=== PATIENT | female | born 1995 | race Hispanic/Latino ===

== ENCOUNTER 2019-01-21 04:13 | Inpatient (IN) | payer MEDICARE, MEDICAID ==
[2019-01-21] MEDS ORDERED: niCARdipine 20MG In NaCl 20 MG/200 ML BAG ONE (04:25)
[2019-01-21] MEDS ORDERED: Piperacillin/Tazobactam 4.5 GM VIAL ONE (05:24)
[2019-01-21] MEDS ORDERED: Bisacodyl 10 MG SUPP PR PRN (05:26)
[2019-01-21] MEDS ORDERED: Ondansetron PF 4 MG/2 ML Vial IVP PRN (05:26)
[2019-01-21] MEDS ORDERED: Morphine 2 MG/ML SYRINGE SLOW IVP PRN (05:26)
[2019-01-21] MEDS ORDERED: Sodium Chloride 0.9% 1,000 ML IV SCH (05:30)
[2019-01-21] MEDS ORDERED: manNITOL 20% 500 ML ONE (05:46)
[2019-01-21] MEDS ORDERED: Thrombin 5000 UNITS/5 ML VIAL ONE (05:49)
[2019-01-21] MEDS ORDERED: Lidocaine 0.5%/Epinephrine 1:200,000 50 ml Vial ONE (05:49)
[2019-01-21] MEDS ORDERED: Sodium Chloride 0.9% 10 ML ONE (05:49)
[2019-01-21] MEDS ORDERED: Midazolam HCl 2 mg/2 ml Vial ONE (05:50)
[2019-01-21] MEDS ORDERED: Fentanyl 100 MCG/2 ML VIAL ONE (05:50)
[2019-01-21 05:51] LABS: Analyzer IN Cardio ER; Base Excess (BEa) 0.3 mEq/L (-2.0 to +3.0); CO2 Tension 27.1 mmHg (35.0-45.0); Carboxyhemoglobin (COHb) 0.2 gm% (0.0-3.0); Hemoglobin (Hb) 11.5 g/dL (12.0-16.0); O2 Tension (PaO2) 224.6 mmHg (80.0-100.0); Potassium - ABG Lab 4.53 mmol/L (3.70-5.30); pH, Arterial 7.53 (7.35-7.45)
[2019-01-21 05:54] LABS: Puncture Site LRA
[2019-01-21 05:55] LABS: ALV-art Gradient 98.025 (0-20)
[2019-01-21] MEDS ORDERED: SODIUM CHLORIDE 0.9% IVPB SCH ×2 (06:45→11:30)
[2019-01-21] MEDS ORDERED: FOSPHENYTOIN SODIUM IVPB SCH ×2 (06:45→11:30)
--- NOTE | 2019-01-21 07:10 | PRG ---
DATE OF SERVICE: 01/21/2019 HISTORY OF PRESENT ILLNESS: Ms. Stewart is a 23-year-old female who presented to an outside ER. She had a noncontrast head CT at that time which revealed diffuse widespread subarachnoid hemorrhage with intraparenchymal and extra-axial components. She was transferred to [facility]. She had been intubated. She underwent repeat imaging, which revealed the aforementioned blood products in the brain with associated midline shift. She had a CT angiogram performed, which revealed no obvious source of vascular anomaly including aneurysm or AV malformation. There was a large degree of blood present, which could easily obscure an underlying aneurysm. She does not open her eyes. She episodically moves the right upper extremity and per report intermittently to command. She did receive a dose of mannitol at [facility] prior to transfer. This is a 23-year-old female with multiple intracranial hemorrhages. The most significant of which is a large subarachnoid intraparenchymal component with associated midline shift and associated subfalcine herniation. Neurologically, she is doing poorly and is at risk for eminent herniation. The neurosurgical plan will be one of a decompressive craniectomy. She will need followup vascular studies to further evaluate for aneurysm or other source for her hemorrhage. Of note, she is in end-stage renal disease, awaiting kidney transplant. The family is aware of the gravity of her condition and her poor prognosis at this time. The risks, benefits, and alternatives to the surgical procedure were discussed with the family and they have provided consent. Job ID: [id number] MTDD
--- NOTE | 2019-01-21 07:31 | CT ---
CT HEAD NONCONTRAST CTA [place] OF [place] WITH CONTRAST CTA NECK WITH CONTRAST 3D VOLUME RENDERING: Date: 01/21/19 CLINICAL HISTORY: Altered mental status. History of ruptured aneurysm with intracranial hemorrhage and midline shift. Prior imaging evaluation not available for comparison purposes. FINDINGS: There is a large mixed density acute parenchymal hemorrhage centered at the right frontal lobe with f luid hemorrhage level and surrounding edema which spans an AP dimension of approximately 5.5 cm. Ther e is diffuse bilateral acute subarachnoid hemorrhage with superimposed subdural hemorrhage along the anterior interhemispheric falx and overlying the right frontoparietal convexity. Subdural hematoma ov erlying the right convexity measures up to 4-5 mm in thickness. There is leftward subfalcine herniati on, measuring 4-5 mm at level of septum pellucidum. There is diffuse subarachnoid hemorrhage infiltra ting the basilar cisterns and extending into the imaged upper cervical spine vertebral canal. Localiz ed extra-axial hemorrhage of the right middle cranial fossa exerts mass effect upon the anterior pole of the right temporal lobe. There is generalized effacement of the cerebral sulci. Mild asymmetric p rominence of the left temporal horn suggests component of early ventricular trapping due to mass effe ct. CTA neck exam reveals a patent aortic arch, where visualized, and patent bilateral subclavian arterie s. The bilateral common carotid arteries and cervical internal carotid arteries are patent. Throughou t the cervical course of each vertebral artery, there is no significant stenosis. There is encasement of the convergence of the vertebral arteries, as well as of the basilar artery by extensive hemorrha ge, which does produce mild luminal irregularity and narrowing, which may be on the basis of vasocons triction. No significant stenosis or occlusion of either MCA or CRISTINA. There is vasoconstriction of the anterior and middle cerebral arteries due to the prominent, encasing intracranial hemorrhage. Adjace nt to the right M1 segment, just cephalad, and posterior, there is a 3 mm nidus of extravascular hype rdensity which is located within a prominent region of surrounding intracranial hemorrhage. This suzie cates nidus of active bleeding. Incidental note of pulmonary nodules of the right upper lung, incompletely evaluated. There is scatte red paranasal sinus mucosal thickening, greatest involving the right maxillary sinus. Endotracheal an d enteric catheters are present, with surrounding secretions. IMPRESSION: 1. Extensive acute intracranial hemorrhage both intra-axial and extra-axial producing mass effect, m idline shift, ventricular effacement, and ventricular trapping. 2. There is a punctate nidus of extravascular hyperdensity adjacent to the right M1 segment, surroun ded by large volume intracranial hemorrhage, which indicates a site of extravascular acute bleeding, giving the imaging appearance. This is markedly limited in evaluation due to the surrounding acute he morrhage and associated vasospasm. Recommend neurosurgical consultation and conventional cerebral ang iogram for further assessment. Notification of report made available at 0525 hours on 01/21/19. CODE CR. POS: NILE
--- NOTE | 2019-01-21 07:37 | CT ---
ABDOMEN AND PELVIS CT WITH CONTRAST: Date: 01/21/19 INDICATION: Leukocytosis, possible infection. FINDINGS: There is mild volume loss at the imaged lung bases. There is diffuse mild abdominal and pelvic ascite s. Scattered loops of bowel wall thickening are present, notably involving colon, although the bowel is incompletely assessed by lack of enteric contrast administration. An indwelling dialysis catheter is present at the left abdomen via left lower quadrant percutaneous approach, and is coiled within th e posterior left pelvis. The kidneys are atrophic, with multiple hypodensities bilaterally. The domin ant of these, located within the left kidney, demonstrates Hounsfield units slightly greater than nithin t of a simple cyst. There is mild wall prominent and hyperdensity of the gallbladder, which is surrou nded by the above described ascites. There is no free air. Abdominal aorta is normal in caliber. No a cute abnormality of the liver, spleen, pancreas, or adrenal glands. The osseous structures are intact . IMPRESSION: 1. Diffuse bowel wall thickening. Correlate for evidence of enterocolitis. This is limited in assess ment by technique of the exam which does not include enteric contrast. 2. Indwelling peritoneal dialysis catheter with mild diffuse ascites. 3. Atrophic, bilateral kidneys with multiple hypodensities, a majority of which are too small to fur ther characterize, although the largest is slightly greater than typical density of a simple cyst. 4. Mild nonspecific wall prominence and hyperdensity of the gallbladder wall. This is age-indetermin ate. When clinically feasible, as indicated, a dedicated gallbladder ultrasound may be obtained for f urther evaluation. POS: NILE
--- NOTE | 2019-01-21 07:53 | HP ---
HISTORY OF PRESENT ILLNESS: Ms. Nikhil Stewart is a 23-year-old woman, who was transferred from [facility] to [facility] Department for an intracerebral hemorrhage and diffuse subarachnoid hemorrhage likely secondary to aneurysmal rupture. For this purpose, Neurosurgery was consulted. Upon arrival to the Emergency Department of [facility], she had GCS score of 14 but began to deteriorate and vomited profusely. This prompted securing of her airway via intubation. She arrived to [place] and sedated. This was turned off but she started to have some midline shift, right to left, approximately 6 mm on the scan from [facility]. Unfortunately, CTA performed in our Emergency Department has angulation in the axial field or an axial cut that makes it difficult to determine the exact degree of midline shift. The ventricles are not enlarged in the scan performed at [facility]; however, this could certainly become given the degree of subarachnoid hemorrhage she has. She also has a large cerebral clot in the frontal lobe on CTA. I am unable to identify any specific aneurysm or aneurysmal structure, which may be because of again angulation of the scan and not blood products, perhaps the aneurysm sac is compressed. The patient has received 25 g mannitol in [facility] and no more here. She is on 125 mL/hour of normal saline. We turned off her sedation upon arrival. 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 ALLERGIES: SHE HAS NO DRUG ALLERGIES. ACCORDING TO FAMILY, SHE TAKES A HANDFUL OF MEDICATIONS. THE FAMILY IS UNCERTAIN OF THE NAMES. PHYSICAL EXAMINATION: NEUROLOGIC: On examination, after we waited some time for sedation to wear off, she briskly follows commands in the right upper extremity. She withdrawal bilateral lower extremities to pain and moves the left upper extremity to pain, although very limited. EYES: Pupils are equally round but limited reactivity to light as they are constricted. She did receive a large dose of fentanyl before arriving here to help with induction for intubation and tolerance of the vent in the field. She is intubated now with greater GCS, M6 V1 E1 giving her a GCS of 8. ASSESSMENT: Intracerebral hemorrhage, altered mental status, and subarachnoid hemorrhage likely secondary to aneurysm yet to be identified. PLAN: Case is discussed with Dr. Rizzo. We will give another 25 g dose of mannitol. We will consult Critical Care secondary to medical management in the ICU. We will also need to consult Nephrology for management of renal disease and dialysis, and we will consent her for emergent right frontal lokesh-craniectomy. This was discussed with family at length in the consultation room. They are in agreement to this except they would like surgery. The family was consented. Job ID: [id number]
[2019-01-21] MEDS ORDERED: Bacitracin Zinc Ointment 30 gm TUBE ONE (08:06)
[2019-01-21] MEDS ORDERED: Propofol 1,000 MG/100 ML VIAL IV ONE (08:54)
[2019-01-21 09:07] LABS: Actual Bicarbonate (HCO3a) 21.7 mEq/L (22-28); Base Excess (BEa) -1.9 mEq/L (-2.0 to +3.0); CO2 Tension 31.9 mmHg (35.0-45.0); Calcium, Ionized 0.92 mmol/L (1.12-1.30); Carboxyhemoglobin (COHb) 0.4 gm% (0.0-3.0); Hemoglobin (Hb) 7.9 g/dL (12.0-16.0); O2 Tension (PaO2) 115.2 mmHg (80.0-100.0); Potassium - ABG Lab 6.36 mmol/L (3.70-5.30); pH, Arterial 7.45 (7.35-7.45)
--- NOTE | 2019-01-21 09:10 | RAD ---
SINGLE VIEW CHEST: Date: 01/21/19 COMPARISON: 11/16/14. HISTORY: Post intubation and OG tube placement. Respiratory failure. FINDINGS: Single view of the chest shows normal sized cardiomediastinal silhouette. There is no evidence of con solidation, mass, or pleural effusion. There is an endotracheal tube with its tip between the clavicl es. A NG tube is seen in the stomach. There is no evidence of consolidation, mass, or pleural effusio n. IMPRESSION: Appropriate position of endotracheal tube and NG tube. POS: CET
[2019-01-21 09:11] LABS: Puncture Site ALINE
[2019-01-21 09:14] LABS: ALV-art Gradient 130.125 (0-20)
[2019-01-21] MEDS ORDERED: Lorazepam 2 MG/ML VIAL SLOW IVP PRN (09:24)
[2019-01-21] MEDS ORDERED: Fentanyl BOLUS 250 ML IVPB PRN (09:24)
[2019-01-21] MEDS ORDERED: DISCONTINUE PREVIOUS NARCOTIC PAIN MEDICATIONS AND BENZODIAZEPINES FS SCH (09:24)
[2019-01-21] MEDS ORDERED: fentaNYL Citrate/PF 2,000 MCG in Sodium Chloride 0.9% 60 ML IV SCH (09:24)
[2019-01-21] MEDS ORDERED: Propofol BOLUS 1,000 MG/100 ML VIAL IV PRN (09:24)
--- NOTE | 2019-01-21 09:34 | RAD ---
RADIOGRAPH CHEST 1 VIEW: DATE: 01/21/2019 TIME: 9:13 AM HISTORY: Central line placement in 23-year-old female COMPARISON: 01/21/2019 4:11 AM FINDINGS: There is a new left subclavian central venous catheter, with distal tip in the central portion of the right atrium. Endotracheal tube and esophagogastric tube remain. New finding of partial silhouetting of the left hemidiaphragm, perhaps subsegmental atelectasis at left lower lobe. The rest of the lungs remain clear. No evidence of pneumothorax. IMPRESSION: Left subclavian central vascular catheter placement without pneumothorax.
--- NOTE | 2019-01-21 09:46 | OP ---
DATE OF PROCEDURE: 01/21/2019 ACUTE CARE CERTIFIED NURSING ASSISTANT: Arthur Donato PA-C INDICATION: Intracerebral hemorrhage with a herniation syndrome. PROCEDURES PERFORMED: Right frontal, temporal, parietal craniectomy for decompression. ANESTHESIA: General. DESCRIPTION OF PROCEDURE: The patient was brought into the operating room and placed under general anesthesia. She was placed on table in a supine position. Her head was turned to the left for exposure on the right side. The right side of her scalp was shaved. A large reverse question ricco incision was planned. After prepping and draping and after infiltrating the incision with lidocaine with epinephrine, the incision was created. Roxane clips were applied along the perimeter. The skin flap was reflected anteriorly. Multiple diamond holes were placed and connected with a router drill bit and the bone flap was elevated. The dura was identified and found to be taut with a blue hue beneath it. The dura was opened in a stellate fashion, where there was immediate egress of subdural blood product. The brain was discolored consistent with diffuse widespread subarachnoid hemorrhage. After opening the dural leaflets and obtaining hemostasis, silastic sheet was carefully secured loosely to the dural leaflets. An epidural drain was then placed and brought out through a separate puncture site. The wound was then closed in anatomic layers and a pressure dressing was applied. There were no known procedural complications. Job ID: [id number]
[2019-01-21] MEDS ORDERED: CEFAZOLIN 2 GM in Sodium Chloride 0.9% 100 ML IVPB SCH ×2 (10:00→14:00)
[2019-01-21] MEDS ORDERED: ISOVUE-370 76%-LOCM 1 ML ONE (10:12)
[2019-01-21 10:27] LABS: #Basophils 0.1 thou/uL (0.0-0.2); #Lymphocytes 1.3 thou/uL (1.20-3.40); #Monocytes 0.9 thou/uL (0.11-0.59); #Neutrophils 9.2 thou/uL (1.40-6.50); %Basophils 0.7 % (0.0-1.0); %Eosinophils 0.2 % (0.0-10.0); %Lymphocytes 11.5 % (21.0-51.0); %Monocytes 7.7 % (0.0-10.0); %Neutrophils 79.8 % (42.0-75.0); Hemoglobin 8.2 g/dL (12.0-16.0); Mean Corpuscular HGB CONC 34.8 g/dL (32.0-36.0); Mean Corpuscular Hemoglobin 30.9 pg (27.0-31.0); Mean Platelet Volume 7.9 fL (7.4-10.4); Platelet Count 248 thou/uL (130-400); RBC Distribution Width 11.4 % (11.5-14.5); Red Blood Cell (RBC) Count 2.65 mill/uL (4.20-5.40); White Blood Cell (WBC) Count 11.5 thou/uL (4.8-10.8)
[2019-01-21] MEDS: Propofol 1,000 MG/100 ML VIAL IV PRN ×2 (10:35→18:22)
[2019-01-21] MEDS: niMODipine 30 MG CAP PO SCH ×4 (10:35→22:06)
[2019-01-21 10:38] LABS: Anion Gap 18 mmol/L (10-20); BUN (Urea Nitrogen) 56 mg/dL (7.0-18.7); Calc. Creatinine Clearance 5 mL/min (70-130); Calcium 7.2 mg/dL (7.8-10.44); Carbon Dioxide 22 mmol/L (22-29); Chloride 97 mmol/L (98-107); Estimated GFR-MDRD 3; Glucose 89 mg/dL (70-105); Potassium 6.5 mmol/L (3.5-5.1); Sodium 130 mmol/L (136-145)
--- NOTE | 2019-01-21 11:09 | CON ---
DATE OF CONSULTATION: REASON FOR CONSULTATION: End-stage renal disease, on maintenance peritoneal dialysis. HISTORY OF PRESENT ILLNESS: This is a 23-year-old female, who presented for subarachnoid hemorrhage and had surgery. The patient is intubated. She does peritoneal dialysis on a daily basis. No further history can be obtained as the patient is intubated. PAST MEDICAL HISTORY: Significant for end-stage renal disease, on maintenance peritoneal dialysis due to William disease, history of PD catheter placement, history of AV fistula surgery, history of anemia, and history of hypertension. SOCIOECONOMIC HISTORY: No alcohol or drug use. FAMILY HISTORY: Negative for ESRD. ALLERGIES: REVIEWED. MEDICATIONS: Medication list reviewed. REVIEW OF SYSTEMS: Unobtainable. PHYSICAL EXAMINATION: GENERAL: The patient is resting. VITAL SIGNS: Afebrile, pulse 75, breathing 16, blood pressure 118/64. GENERAL APPEARANCE AND MENTAL STATUS: Fair. HEAD/NECK: Normocephalic. Atraumatic. EYES: EOMI. No deformity. EARS: Clear. No ulcers. NOSE: Intact. No lesions. MOUTH: Clear. No discharge. THROAT: Clear. No exudate. LUNGS: Clear. No crackles. CARDIAC: S1, S2. No rub. ABDOMEN: Benign. Bowel sounds positive. GENITALIA/RECTUM: Sanchez absent. BACK/EXTREMITIES: Edema 0+. NEUROLOGICAL: The patient is resting. SKIN: LYMPHATICS: LABORATORY DATA: No labs available here. ASSESSMENT AND RECOMMENDATIONS: 1. Stage 6 chronic kidney disease. Plan dialysis, which will be peritoneal dialysis per her home standing orders. 2. Anemia, stable. 3. Medication based on GFR, appropriate. 4. Subarachnoid hemorrhage. Management per primary team. Job ID: [id number]
[2019-01-21] MEDS: niCARdipine 25 MG in Sodium Chloride 0.9% 250 ML 240 ML IVPB SCH ×2 (11:19→16:20)
[2019-01-21] MEDS: Morphine 2 MG/ML SYRINGE SLOW IVP PRN (12:21)
[2019-01-21] MEDS ORDERED: Aminocaproic Acid 5 GM in Sodium Chloride 0.9% 250 ML 250 ML IV SCH (13:00)
[2019-01-21] MEDS ORDERED: CEFAZOLIN 1 GM VIAL SLOW IVP SCH (14:00)
[2019-01-21] MEDS: CEFAZOLIN 2 GM, Admixture Fee 1 EACH in Sodium Chloride 0.9% 100 ML IVPB SCH ×2 (14:05→22:06)
[2019-01-21 16:02] LABS: Actual Bicarbonate (HCO3a) 23.2 mEq/L (22-28); Base Excess (BEa) -0.6 mEq/L (-2.0 to +3.0); CO2 Tension 34.4 mmHg (35.0-45.0); Calcium, Ionized 0.92 mmol/L (1.12-1.30); Carboxyhemoglobin (COHb) 0.6 gm% (0.0-3.0); Hemoglobin (Hb) 8.4 g/dL (12.0-16.0); Potassium - ABG Lab 5.66 mmol/L (3.70-5.30); pH, Arterial 7.45 (7.35-7.45)
[2019-01-21 16:06] LABS: Puncture Site LINE
[2019-01-21] MEDS ORDERED: PHENYLEPHRINE-NS 100 MCG/ML 10 ML SYRINGE ONE (16:25)
[2019-01-21] MEDS ORDERED: PROPOFOL 200 MG/20 ML VIAL ONE (16:25)
[2019-01-21] MEDS ORDERED: Labetalol HCl 100 MG/20 ML VIAL ONE (16:25)
[2019-01-21] MEDS ORDERED: Rocuronium Bromide 10 MG/ML (10ML VIAL) ONE (16:25)
[2019-01-21] MEDS: Sevelamer Carbonate 800 MG TAB PO SCH (17:10)
[2019-01-21 18:40] LABS: Anion Gap 17 mmol/L (10-20); BUN (Urea Nitrogen) 57 mg/dL (7.0-18.7); Calc. Creatinine Clearance 5 mL/min (70-130); Calcium 7.2 mg/dL (7.8-10.44); Carbon Dioxide 22 mmol/L (22-29); Chloride 98 mmol/L (98-107); Estimated GFR-MDRD 3; Glucose 94 mg/dL (70-105); Potassium 5.5 mmol/L (3.5-5.1); Sodium 131 mmol/L (136-145)
[2019-01-21] MEDS ORDERED: Fosphenytoin Sodium 100 MG in Sodium Chloride 0.9% 100 ML IVPB SCH (21:00)
[2019-01-22] MEDS: niCARdipine 25 MG in Sodium Chloride 0.9% 250 ML 240 ML IVPB SCH ×4 (01:42→12:25)
[2019-01-22] MEDS: niMODipine 30 MG CAP PO SCH ×6 (01:44→21:40)
--- NOTE | 2019-01-22 02:50 | CON ---
DATE OF CONSULTATION: HISTORY OF PRESENT ILLNESS: Ms. Nikhil Stewart is a very unfortunate 23-year- old female with end-stage renal disease. She was transferred here from [facility]. Apparently, she was awake in the emergency room and deteriorated rapidly. She was intubated and transferred here. She had a midline shift. She underwent a craniectomy this morning. She was transferred back to the critical care unit. PAST MEDICAL HISTORY: Remarkable for; 1. Renal failure from [facility]. 2. Status post placement of a peritoneal dialysis catheter. Per my discussion with Dr. Espino, she is extremely compliant, she has been a great patient. Reviewing all records, she has not been somebody that has been in and out of the hospital frequently. Reviewing Dr. 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 She also had a history of hypertension in the past and history of congestive heart failure. In 2014, an echocardiogram showed her to have a normal systolic function and normal diastolic function as well. Her valvular structure appeared to be normal. She did have a pericardial effusion back then. FAMILY HISTORY: Negative for lung disease in early age. REVIEW OF SYSTEMS: Not obtainable. PHYSICAL EXAMINATION: VITAL SIGNS: She is bandaged. She was examined right after coming back from the operating room. Heart rates in the 80s, blood pressure stable. Latest blood pressure is 112/58, respiratory rates in the teens, oximetry is 100%. She had bandaged head. She was still sedated from her surgery. LUNGS: Clear. HEART: Regular rhythm. S1 and S2 normal. ABDOMEN: Soft and nontender without guarding. EXTREMITIES: Without asymmetry or edema. IMAGING DATA: Chest radiograph shows proper placement of the endotracheal tube and central line. No infiltrates are seen. IMPRESSION: 1. Severe brain hemorrhage leading to a craniectomy. 2. End-stage renal disease, on peritoneal dialysis. 3. History of polyarteritis nodosa. We will be happy to follow the other physicians caring for. Obviously at this time, she is not weanable. Her postop blood gas showed pH 7.45, CO2 34, and PO2 164. I will be happy to follow the other physicians caring for. I met with family and talked to them at the bedside. Job ID: [id number] [facility] [place]
[2019-01-22] MEDS: Propofol 1,000 MG/100 ML VIAL IV PRN ×2 (03:49→18:22)
[2019-01-22 04:22] LABS: #Basophils 0.1 thou/uL (0.0-0.2); #Lymphocytes 1.2 thou/uL (1.20-3.40); #Monocytes 1.2 thou/uL (0.11-0.59); #Neutrophils 12.5 thou/uL (1.40-6.50); %Basophils 0.9 % (0.0-1.0); %Eosinophils 0.2 % (0.0-10.0); %Lymphocytes 7.7 % (21.0-51.0); %Monocytes 8.1 % (0.0-10.0); %Neutrophils 83.1 % (42.0-75.0); Hemoglobin 8.8 g/dL (12.0-16.0); Mean Corpuscular HGB CONC 33.6 g/dL (32.0-36.0); Mean Corpuscular Hemoglobin 31.3 pg (27.0-31.0); Mean Platelet Volume 7.8 fL (7.4-10.4); Platelet Count 288 thou/uL (130-400); RBC Distribution Width 11.8 % (11.5-14.5); Red Blood Cell (RBC) Count 2.81 mill/uL (4.20-5.40)
[2019-01-22 04:55] LABS: Anion Gap 20 mmol/L (10-20); BUN (Urea Nitrogen) 46 mg/dL (7.0-18.7); Calc. Creatinine Clearance 5 mL/min (70-130); Calcium 8.3 mg/dL (7.8-10.44); Carbon Dioxide 21 mmol/L (22-29); Chloride 98 mmol/L (98-107); Estimated GFR-MDRD 4; Glucose 222 mg/dL (70-105); Potassium 4.1 mmol/L (3.5-5.1); Sodium 135 mmol/L (136-145)
[2019-01-22] MEDS: CEFAZOLIN 2 GM, Admixture Fee 1 EACH in Sodium Chloride 0.9% 100 ML IVPB SCH ×3 (05:30→21:40)
--- NOTE | 2019-01-22 07:48 | PRG ---
DATE OF SERVICE: 01/22/2019 Ms. Nikhil Stewart is 1 day status post hemicraniectomy for a large intracerebral hemorrhage consisting of subarachnoid hemorrhage, intracerebral hemorrhage, and subdural hematoma. Her initial screening study performed yesterday revealed no evidence for underlying vascular malformation or aneurysm. I had ordered a repeat CTA this morning, which never got done. My plan is to take her to the research laboratory technician to perform diagnostic angiography and treating the vascular malformation, which may be present. She will still need repeat CT scan at some point today. I have discussed this with her family and they have provided consent for the procedure. Overnight, she has been stable. She is currently sedated. Per report, she follows commands on the right side. She does not open eyes nor does she exhibit any movement on the left side. Job ID: [id number]
[2019-01-22] MEDS ORDERED: Heparin 10,000 UNITS/1 ML VIAL ONE (08:00)
[2019-01-22] MEDS: Sevelamer Carbonate 800 MG TAB PO SCH ×3 (09:00→17:36)
[2019-01-22] MEDS ORDERED: Prevnar 13-Val Conj/PF 0.5 ML SYRINGE IM ONE (09:00)
[2019-01-22] MEDS: Calcitriol 0.25 MCG CAP PO SCH (09:00)
[2019-01-22] MEDS ORDERED: Rocuronium Bromide 10 MG/ML (10ML VIAL) ONE (09:37)
[2019-01-22] MEDS ORDERED: Iopamidol 370 76% 100 ML VIAL ONE (10:59)
--- NOTE | 2019-01-22 12:16 | PRG ---
DATE OF SERVICE: 01/22/2019 SUBJECTIVE: A 23-year-old female being seen for end-stage renal disease. The patient tolerated PD well. OBJECTIVE: GENERAL: The patient is resting. VITAL SIGNS: Afebrile. Pulse 106, breathing 16, blood pressure 115/52. GENERAL APPEARANCE AND MENTAL STATUS: Fair. HEAD/NECK: Normocephalic. Atraumatic. EYES: EOMI. No deformity. EARS: Clear. No ulcers. NOSE: Intact. No lesions. MOUTH: Clear. No discharge. THROAT: Clear. No exudate. LUNGS: Clear. No crackles. CARDIAC: S1, S2. No rub. ABDOMEN: Benign. Bowel sounds positive. GENITALIA/RECTUM: Sanchez absent. BACK/EXTREMITIES: Edema 0+. NEUROLOGICAL: The patient is sleeping. SKIN: LYMPHATICS: LABORATORY DATA: Labs showed hemoglobin 8.8, potassium 4.1. ASSESSMENT AND PLAN: 1. Stage 6 chronic kidney disease, stable. 2. Hypertension, stable. 3. Anemia, stable. 4. Medication based on GFR appropriate. Job ID: [id number]
[2019-01-22] MEDS: Morphine 2 MG/ML SYRINGE SLOW IVP PRN (17:31)
--- NOTE | 2019-01-22 18:51 | CCL ---
DATE OF SERVICE: 01/22/19 SURGEON: Napoleon Rizzo M.D. REHAB RN: None. INDICATION: Intracerebral hemorrhage. PROCEDURE: Diagnostic cerebral angiography. ANESTHESIA: General and local. TECHNIQUE: The patient was brought into the angiogram suite and placed on the table in the supine position. Both groins were prepped and draped in the usual sterile fashion. She was already intubated and therefore placed under anesthesia via anesthesia help. A 5 Filipino micropuncture set was used to gain access to the right common femoral artery. Using the Seldinger technique, the needle was removed and a 5 Frenc h sheath was placed. A 5 Filipino diagnostic catheter was passed over a Advanced LEDssen guidewire and advanced into the aortic arch where the right common carotid artery was selective catheterized. AP and lateral angiogram was performed. The catheter was then placed in the left internal carotid artery where an AP and lateral angiogram was performed. Finally the catheter was placed in the left vertebral artery where an AP and lateral angiogram was performed. All catheters were then removed. The sheath was saji rosalio and hemostasis was maintained with manual compression. The procedure came to an end without known complication. FINDINGS: Cerebral angiography was performed from the right common carotid artery reveals no evidence for early filling vein, arterial venous malformation or obvious aneurysm. Cerebral angiography performed from the left internal carotid artery reveals normal filling middle ce rebral artery territory. The anterior cerebral artery territory is filled from the contralateral side . There is no evidence AVM or aneurysm. Cerebral angiography performed from the left vertebral artery reveals no evidence for aneurysm or ear ly filling vein or vascular malformation. IMPRESSION: Patient underwent successful angiography. Angiography reveals no evidence at this time for aneurysm, arteriovenous malformation, or other obvious cause for the patient's hemorrhage. There is no indicati on at this time for early signs of vasospasm.
[2019-01-23] MEDS: niMODipine 30 MG CAP PO SCH ×6 (01:03→21:12)
[2019-01-23] MEDS: niCARdipine 25 MG in Sodium Chloride 0.9% 250 ML 240 ML IVPB SCH ×2 (01:40→07:10)
[2019-01-23] MEDS: Morphine 2 MG/ML SYRINGE SLOW IVP PRN (01:41)
[2019-01-23] MEDS: CEFAZOLIN 2 GM, Admixture Fee 1 EACH in Sodium Chloride 0.9% 100 ML IVPB SCH ×3 (05:12→21:17)
[2019-01-23] MEDS: Propofol 1,000 MG/100 ML VIAL IV PRN ×2 (06:03→18:33)
[2019-01-23 07:56] LABS: Actual Bicarbonate (HCO3a) 21.2 mEq/L (22-28); Base Excess (BEa) -3.3 mEq/L (-2.0 to +3.0); CO2 Tension 35.2 mmHg (35.0-45.0); Calcium, Ionized 1.01 mmol/L (1.12-1.30); Carboxyhemoglobin (COHb) 1.1 gm% (0.0-3.0); Hemoglobin (Hb) 8.2 g/dL (12.0-16.0); O2 Tension (PaO2) 166.1 mmHg (80.0-100.0); Potassium - ABG Lab 3.52 mmol/L (3.70-5.30)
[2019-01-23 07:59] LABS: Puncture Site ALINE
[2019-01-23] MEDS: Calcitriol 0.25 MCG CAP PO SCH (08:23)
[2019-01-23] MEDS: Sevelamer Carbonate 800 MG TAB PO SCH ×3 (08:23→16:26)
--- NOTE | 2019-01-23 09:42 | PRG ---
DATE OF SERVICE: 01/23/2019 SUBJECTIVE: A 23-year-old female, being seen for end-stage renal disease. The patient denies nausea, vomiting, or chest pain. OBJECTIVE: GENERAL: The patient is awake and alert. VITAL SIGNS: Afebrile, pulse 74, breathing 16, blood pressure 119/53. GENERAL APPEARANCE AND MENTAL STATUS: Fair. HEAD/NECK: Normocephalic. Atraumatic. EYES: EOMI. No deformity. EARS: Clear. No ulcers. NOSE: Intact. No lesions. MOUTH: Clear. No discharge. THROAT: Clear. No exudate. LUNGS: Clear. No crackles. CARDIAC: S1, S2. No rub. ABDOMEN: Benign. Bowel sounds positive. GENITALIA/RECTUM: Sanchez absent. BACK/EXTREMITIES: Edema 0+. NEUROLOGICAL: The patient is resting. SKIN: LYMPHATICS: LABORATORY DATA: Reviewed. ASSESSMENT AND PLAN: 1. Stage 6 chronic kidney disease. Continue peritoneal dialysis. 2. Hypertension, stable. 3. Anemia, stable. 4. Medication based on GFR, appropriate. Job ID: [id number]
[2019-01-23] MEDS: niCARdipine 50 MG in Sodium Chloride 0.9% 250 ML 230 ML IVPB SCH ×2 (10:27→16:46)
--- NOTE | 2019-01-23 11:51 | PRG ---
DATE OF SERVICE: 01/23/2019 SUBJECTIVE: Ms. Nikhil Stewart is postoperative day #2 following right-sided hemicraniectomy. She opens her eyes to voice this morning and follows commands even on the left side and briskly on the right side. She remains intubated. She has significant swelling of her tongue. It is unclear to us whether at this point, it represents angioedema from some sort of medication reaction or related to volume shifts due to her renal disease. She has an art line in her left arm and we will remove this as there is swelling and there has been good function of the cuff and we will use that at this time. We will also get bilateral lower extremity ultrasound as well. We will stop her Amicar. Job ID: [id number]
--- NOTE | 2019-01-23 12:05 | ULT ---
US Venous Doppler Bilat History: Lower extremity edema Comparison: None. Findings: Real-time grayscale spectral and color evaluation of the bilateral lower extremity venous s ystem was performed. The bilateral common femoral, femoral, proximal portions greater saphenous and deep femoral veins as well as the popliteal posterior tibial veins were interrogated. No augmentation was performed as the patient was combative. Normal flow and compression. Impression: No deep venous thrombosis.
--- NOTE | 2019-01-23 12:14 | ULT ---
ULTRASOUND DOPPLER DUPLEX VENOUS LEFT UPPER EXTREMITY: Date: 01/23/19 HISTORY: 23-year-old female with left upper extremity edema. TECHNIQUE: Wilburn scale, color flow, and spectral analysis of major veins of left upper extremity. Compression and release applied to all veins except the subclavian. FINDINGS: There is occlusive thrombosis of the distal portion of the left basilic vein at the wrist. There is n o thrombus in the basilic vein at the proximal forearm, elbow, or arm. There is no evidence of thromb osis of the internal jugular, subclavian, axillary, brachial, cephalic, or radial veins. IMPRESSION: Occlusive thrombosis of left basilic vein at the wrist only. POS: CET
--- NOTE | 2019-01-23 17:03 | PRG ---
DATE OF SERVICE: 01/23/2019 SUBJECTIVE: Ms. Nikhil Stewart remains mechanically ventilated. OBJECTIVE: VITAL SIGNS: Heart rate is in the 90s, blood pressure is 114/55, respiratory rate is 18, oximetry is 100%. NECK: Without lymphadenopathy. LUNGS: Clear. HEART: Regular rhythm. S1 and S2 are normal. No new murmurs heard. ABDOMEN: Soft and nontender. EXTREMITIES: Without edema. LABORATORY DATA: White count 15, hemoglobin 8.8, platelets 288. Sodium 135, potassium 4.1, chloride 98, bicarb 21, BUN 46, and creatinine 13.10. IMPRESSION: 1. End-stage renal disease. 2. Status post parenchymal brain hemorrhage. 3. Hypertension. PLAN: We will continue mechanical ventilation, seizure prophylaxis. Attempt to maintain blood pressure control. In my opinion, she is not accounted for extubation. Critical care time is 35 minutes. Job ID: [id number] MTDD
--- NOTE | 2019-01-23 17:24 | PRG ---
DATE OF SERVICE: 01/23/2019 SUBJECTIVE: Ryder Stewart remains mechanically ventilated. OBJECTIVE: VITAL SIGNS: Blood pressure 114/55, heart rate in the 90s, respiratory rate in the teens, oximetry is 100%. LUNGS: Clear. HEART: Regular rhythm. S1, S2 are normal. ABDOMEN: Soft, nontender. EXTREMITIES: Without edema or asymmetry. IMAGING DATA: Venogram was done today showing no clots in either lower extremity. There is no new lab. IMPRESSION: 1. Status post parenchymal brain hemorrhage. 2. End-stage renal disease. PLAN: Repeat lab in the morning. Chest x-ray. Continue with mechanical ventilation. Serial exams. Critical care time is 35 minutes. Job ID: [id number] MTDD
[2019-01-23] MEDS: Insulin Regular 300 UNITS/3 ML VIAL SC PRN (23:36)
[2019-01-24] MEDS: niMODipine 30 MG CAP PO SCH ×6 (02:18→21:07)
[2019-01-24] MEDS: niCARdipine 50 MG in Sodium Chloride 0.9% 250 ML 230 ML IVPB SCH ×4 (03:42→19:46)
[2019-01-24] MEDS: Morphine 2 MG/ML SYRINGE SLOW IVP PRN ×3 (03:45→21:07)
[2019-01-24 04:49] LABS: Anion Gap 20 mmol/L (10-20); BUN (Urea Nitrogen) 45 mg/dL (7.0-18.7); Calc. Creatinine Clearance 6 mL/min (70-130); Carbon Dioxide 22 mmol/L (22-29); Chloride 98 mmol/L (98-107); Estimated GFR-MDRD 4; Glucose 140 mg/dL (70-105); Potassium 3.3 mmol/L (3.5-5.1); Sodium 137 mmol/L (136-145)
[2019-01-24 04:57] LABS: Band 1 % (5-11); Eosinophils 1 % (0-10); Hemoglobin 7.1 g/dL (12.0-16.0); Lymphocytes 10 % (21-51); MDiff Complete? YES; Mean Corpuscular HGB CONC 34.6 g/dL (32.0-36.0); Mean Corpuscular Volume 92.4 fL (78.0-98.0); Mean Platelet Volume 8.1 fL (7.4-10.4); Monocytes 9 % (0-10); Neutrophil 79 % (42-75); Platelet Count 263 thou/uL (130-400); Platelet Morphology Comment Appears Adequate; RBC Distribution Width 11.7 % (11.5-14.5); Red Blood Cell (RBC) Count 2.21 mill/uL (4.20-5.40); White Blood Cell (WBC) Count 12.7 thou/uL (4.8-10.8)
[2019-01-24] MEDS: CEFAZOLIN 2 GM, Admixture Fee 1 EACH in Sodium Chloride 0.9% 100 ML IVPB SCH ×3 (05:44→21:08)
[2019-01-24] MEDS ORDERED: Propofol 1,000 MG/100 ML VIAL IV ONE (07:29)
[2019-01-24] MEDS: Propofol 1,000 MG/100 ML VIAL IV PRN ×2 (07:37→19:47)
[2019-01-24 07:45] LABS: Actual Bicarbonate (HCO3a) 22.7 mEq/L (22-28); Base Excess (BEa) -0.9 mEq/L (-2.0 to +3.0); CO2 Tension 33.1 mmHg (35.0-45.0); Calcium, Ionized 1.02 mmol/L (1.12-1.30); Carboxyhemoglobin (COHb) 0.9 gm% (0.0-3.0); Hemoglobin (Hb) 7.3 g/dL (12.0-16.0); O2 Tension (PaO2) 105.5 mmHg (80.0-100.0); Potassium - ABG Lab 3.37 mmol/L (3.70-5.30); pH, Arterial 7.46 (7.35-7.45)
[2019-01-24 07:48] LABS: ALV-art Gradient 67.025 (0-20); Puncture Site LF
[2019-01-24] MEDS: Sevelamer Carbonate 800 MG TAB PO SCH ×3 (08:42→17:05)
[2019-01-24] MEDS: Pantoprazole 40 MG VIAL IVP SCH (08:42)
[2019-01-24] MEDS: Calcitriol 0.25 MCG CAP PO SCH (08:43)
--- NOTE | 2019-01-24 09:53 | RAD ---
CHEST 1 VIEW: Date: 02/24/19 COMPARISON: 01/21/19. HISTORY: Evaluate central line placement. FINDINGS: Redemonstration of endotracheal and nasogastric tube. Left-sided subclavian central venous catheter a ppears to terminate in the right atrium. Cardiac silhouette is enlarged. Pulmonary vessels are slight ly prominent. Patchy interstitial opacities, without consolidation or mass. No pleural effusion or pn eumothorax. IMPRESSION: Lines and tubes as above. POS: [facility]
--- NOTE | 2019-01-24 10:26 | PRG ---
DATE OF SERVICE: 01/24/2019 SUBJECTIVE: A 23-year-old female, being seen for end-stage renal disease. The patient is intubated. OBJECTIVE: GENERAL: On examination, the patient is resting. VITAL SIGNS: Afebrile. Pulse 77, breathing 16, blood pressure 116/55. GENERAL APPEARANCE AND MENTAL STATUS: Fair. HEAD/NECK: Normocephalic. Atraumatic. EYES: EOMI. No deformity. EARS: Clear. No ulcers. NOSE: Intact. No lesions. MOUTH: Clear. No discharge. THROAT: Clear. No exudate. LUNGS: Clear. No crackles. CARDIAC: S1, S2. No rub. ABDOMEN: Benign. Bowel sounds positive. GENITALIA/RECTUM: Sanchez absent. BACK/EXTREMITIES: Edema 0+. NEUROLOGICAL: The patient is resting. SKIN: LYMPHATICS: LABORATORY DATA: Labs show hemoglobin 7.1, creatinine 11.2. ASSESSMENT AND PLAN: 1. Stage 6 chronic kidney disease. Continue PD. 2. Anemia. We would recommend 1 unit of packed red blood cell transfusion. 3. Hypertension, stable. 4. Medication based on GFR, appropriate. Job ID: [id number]
[2019-01-24] MEDS: Scopolamine 1.5 mg/72 hour Patch TD SCH (12:28)
--- NOTE | 2019-01-24 12:58 | PRG ---
DATE OF SERVICE: 01/24/2019 SUBJECTIVE: Ms. Nikhil Stewart she is sleeping currently, but does follow commands. The tongue edema appears to be improved left basilic vein venous thrombosis was found on ultrasound yesterday, bilateral lower extremity ultrasound was negative. We will continue to follow closely along. I should note her flat remains full, but not unduly tense. Her wound is dry. Job ID: [id number]
--- NOTE | 2019-01-24 18:11 | PRG ---
DATE OF SERVICE: 01/24/2019 SUBJECTIVE: Ms. Nikhil Stewart remains stable. OBJECTIVE: VITAL SIGNS: Heart rate is 114, blood pressure 122/57, respiratory rate in the teens, oximetry is 100%. LUNGS: Remarkable for very mild rhonchi. HEART: Regular rhythm. ABDOMEN: Soft. EXTREMITIES: Without asymmetry. LABORATORY DATA: White count 12.7, hemoglobin 7.1, platelets 263. She is to receive blood today. Sodium 137, potassium 3.3, chloride 98, bicarb 22, BUN 45 , and creatinine 11.2. IMPRESSION: 1. End-stage renal disease. 2. Parenchymal brain hemorrhage. 3. Respiratory failure, not a candidate for weaning yet. 4. Anemia with likely mixture of chronic disease and blood loss, to be transfused. 5. History of hypertension. 6. Retained secretions. We will add nebulizer treatments. Continue to follow. Her tongue edema is improving. Be quite some time before she is weanable. I met with the family and updated them in [place] that she is stable. Critical care time is 35 minutes. Job ID: [id number] MTDD
[2019-01-25] MEDS: niMODipine 30 MG CAP PO SCH ×6 (00:52→22:06)
[2019-01-25] MEDS: niCARdipine 50 MG in Sodium Chloride 0.9% 250 ML 230 ML IVPB SCH ×5 (02:00→22:09)
[2019-01-25] MEDS: CEFAZOLIN 2 GM, Admixture Fee 1 EACH in Sodium Chloride 0.9% 100 ML IVPB SCH ×3 (05:03→21:44)
[2019-01-25] MEDS: Propofol 1,000 MG/100 ML VIAL IV PRN ×3 (05:03→20:16)
[2019-01-25 05:07] LABS: Anion Gap 19 mmol/L (10-20); BUN (Urea Nitrogen) 47 mg/dL (7.0-18.7); Calc. Creatinine Clearance 7 mL/min (70-130); Calcium 8.5 mg/dL (7.8-10.44); Carbon Dioxide 21 mmol/L (22-29); Chloride 97 mmol/L (98-107); Estimated GFR-MDRD 5; Glucose 141 mg/dL (70-105); Potassium 3.3 mmol/L (3.5-5.1); Sodium 134 mmol/L (136-145)
[2019-01-25] MEDS: Insulin Regular 300 UNITS/3 ML VIAL SC PRN ×2 (05:32)
[2019-01-25] MEDS: Morphine 2 MG/ML SYRINGE SLOW IVP PRN ×2 (05:32→09:25)
[2019-01-25 05:45] LABS: Anisocytosis SLIGHT = 6-15 cells (100X) (0-5/hpf); Band 1 % (5-11); Eosinophils 3 % (0-10); Hemoglobin 8.5 g/dL (12.0-16.0); Lymphocytes 7 % (21-51); MDiff Complete? YES; Mean Corpuscular HGB CONC 33.3 g/dL (32.0-36.0); Mean Corpuscular Hemoglobin 29.2 pg (27.0-31.0); Mean Corpuscular Volume 87.5 fL (78.0-98.0); Mean Platelet Volume 8.3 fL (7.4-10.4); Monocytes 7 % (0-10); Neutrophil 82 % (42-75); Platelet Count 254 thou/uL (130-400); Platelet Morphology Comment Appears Adequate; RBC Distribution Width 15.8 % (11.5-14.5); Red Blood Cell (RBC) Count 2.92 mill/uL (4.20-5.40); White Blood Cell (WBC) Count 14.9 thou/uL (4.8-10.8)
[2019-01-25 07:30] LABS: Actual Bicarbonate (HCO3a) 21.6 mEq/L (22-28); Base Excess (BEa) -1.8 mEq/L (-2.0 to +3.0); Calcium, Ionized 1.09 mmol/L (1.12-1.30); Carboxyhemoglobin (COHb) 0.9 gm% (0.0-3.0); Hemoglobin (Hb) 8.7 g/dL (12.0-16.0); O2 Tension (PaO2) 84.5 mmHg (80.0-100.0); Potassium - ABG Lab 3.32 mmol/L (3.70-5.30); pH, Arterial 7.46 (7.35-7.45)
[2019-01-25 07:31] LABS: Puncture Site LF
--- NOTE | 2019-01-25 08:09 | RAD ---
EXAM: Portable chest PROVIDED CLINICAL HISTORY: Respiratory insufficiency COMPARISON: 01/24/2019 FINDINGS: Significant interval change with respect to the prior examination is not apparent. IMPRESSION: As above.
--- NOTE | 2019-01-25 08:50 | CT ---
CT HEAD WITHOUT CONTRAST: HISTORY: Status post right decompressive hemicraniectomy. COMPARISON: 01/21/2019 FINDINGS: Hemorrhage: Redemonstration of extensive subarachnoid and intraventricular blood. There is also pro bable intraparenchymal blood in the right frontal lobe. There is sulcal effacement along the right frontal and temporal lobes. There has been interval placement of a decompressive right-sided craniec nico. There are expected postoperative changes in the soft tissues. There is soft tissue swelling and subcutaneous air. A drainage catheter is identified. Brain parenchyma: There is 5 mm of [id number] anterior subfalcine herniation. Ventricular system: Mass effect upon the right lateral ventricle. Stable intraventricular blood. Calvarium: Intact. Sinuses and mastoid air cells: Right sphenoid sinus disease. IMPRESSION: 1. Postoperative changes compatible with a right hemicraniectomy. 2. Extensive intracranial hemorrhage, as described above. There is sulcal effacement along the righ t frontal and temporal regions. 3. Anterior [id number]-[id number] subfalcine herniation. Transcribed Date/Time: 01/25/2019 1:01 PM
[2019-01-25] MEDS: Sevelamer Carbonate 800 MG TAB PO SCH ×3 (09:24→17:48)
[2019-01-25] MEDS: Calcitriol 0.25 MCG CAP PO SCH (09:25)
[2019-01-25] MEDS ORDERED: Labetalol HCl 100 MG/20 ML VIAL ONE (11:06)
[2019-01-25] MEDS: Pantoprazole 40 MG VIAL IVP SCH (11:09)
[2019-01-25] MEDS ORDERED: Labetalol HCl 100 MG/20 ML VIAL SLOW IVP SCH (11:15)
--- NOTE | 2019-01-25 11:28 | PRG ---
DATE OF SERVICE: 01/25/2019 SUBJECTIVE: This is a 23-year-old female being seen for peritoneal dialysis. The patient tolerated PD well. OBJECTIVE: CONSTITUTIONAL: On examination, the patient is resting and intubated. VITAL SIGNS: Afebrile, pulse 110, breathing is 16, and blood pressure 149/63. GENERAL APPEARANCE AND MENTAL STATUS: Fair. HEAD/NECK: Normocephalic. Atraumatic. EYES: EOMI. No deformity. EARS: Clear. No ulcers. NOSE: Intact. No lesions. MOUTH: Clear. No discharge. THROAT: Clear. No exudate. LUNGS: Clear. No crackles. CARDIAC: S1, S2. No rub. ABDOMEN: Benign. Bowel sounds positive. GENITALIA/RECTUM: Sanchez absent. BACK/EXTREMITIES: Edema 0+. NEUROLOGICAL: The patient is resting. SKIN: LYMPHATICS: LABORATORY DATA: Labs show hemoglobin 8.5. Creatinine is 10.4. ASSESSMENT AND PLAN: 1. Stage 6 chronic kidney disease. Continue peritoneal dialysis. We will try to remove fluid. 2. Hypertension. We will start labetalol. 3. Anemia, stable. 4. Medications based on glomerular filtration rate are appropriate. Job ID: [id number]
--- NOTE | 2019-01-25 15:05 | PRG ---
DATE OF SERVICE: 01/25/2019 Ms. Nikhil Stewart is [address] this morning demonstrates herniation of the right frontal lobe out of the craniectomy defect as expected with improvement in her right ventricular effacement and improvement in midline shift. Her drain output has been low overnight and we would consider removal today. She continues to have tongue edema and continues to be stable neurologically, following commands quickly on the right side than she does the left. I should note that she did undergo dialysis and I have spoken with Dr. Hopkins this morning as he was able to remove half a liter. We did give her a unit of blood yesterday and her Dilantin level was low yesterday, as such we gave her 500 mg of IV fosphenytoin and continued her nightly dose of 300 mg at night and her level is therapeutic today. Job ID: [id number]
[2019-01-25] MEDS: Labetalol HCl 100 MG/20 ML VIAL SLOW IVP PRN ×2 (15:47→22:07)
--- NOTE | 2019-01-25 18:44 | PRG ---
DATE OF SERVICE: 01/25/2019 SUBJECTIVE: Remains mechanically ventilated. OBJECTIVE: VITAL SIGNS: Heart rate 104, blood pressure 135/55, respiratory rate is per mechanical ventilation, oximetry is 98%. LUNGS: Clear. HEART: Regular rhythm. ABDOMEN: Soft. EXTREMITIES: Without edema. LABORATORY DATA: White count is 14.9, hemoglobin 8.5, platelets 254. Sodium 134, potassium 3.3, chloride 97, bicarb 21, BUN 47, creatinine 10, pH 7.46, CO2 of 31 , pO2 of 84. IMPRESSION: Respiratory failure, status post parenchymal brain hemorrhage, not a candidate for weaning. We will continue to follow the other physicians caring for. Critical care time is 35 minutes. Job ID: [id number] MTDD
[2019-01-26] MEDS: niMODipine 30 MG CAP PO SCH ×6 (01:01→21:15)
[2019-01-26] MEDS: Propofol 1,000 MG/100 ML VIAL IV PRN ×4 (02:15→23:56)
[2019-01-26] MEDS: Labetalol HCl 100 MG/20 ML VIAL SLOW IVP PRN ×4 (04:06→23:17)
[2019-01-26] MEDS: niCARdipine 50 MG in Sodium Chloride 0.9% 250 ML 230 ML IVPB SCH ×3 (04:16→20:27)
[2019-01-26] MEDS: CEFAZOLIN 2 GM, Admixture Fee 1 EACH in Sodium Chloride 0.9% 100 ML IVPB SCH ×3 (05:39→21:49)
[2019-01-26 05:53] LABS: Band 3 % (5-11); Eosinophils 2 % (0-10); Hemoglobin 8.5 g/dL (12.0-16.0); Lymphocytes 10 % (21-51); MDiff Complete? YES; Mean Corpuscular HGB CONC 34.4 g/dL (32.0-36.0); Mean Corpuscular Hemoglobin 30.2 pg (27.0-31.0); Mean Corpuscular Volume 87.8 fL (78.0-98.0); Mean Platelet Volume 8.3 fL (7.4-10.4); Monocytes 10 % (0-10); Neutrophil 75 % (42-75); Platelet Count 233 thou/uL (130-400); RBC Distribution Width 15.6 % (11.5-14.5); Red Blood Cell (RBC) Count 2.83 mill/uL (4.20-5.40); White Blood Cell (WBC) Count 11.1 thou/uL (4.8-10.8)
[2019-01-26 05:55] LABS: Anion Gap 20 mmol/L (10-20); BUN (Urea Nitrogen) 54 mg/dL (7.0-18.7); Calc. Creatinine Clearance 8 mL/min (70-130); Calcium 8.6 mg/dL (7.8-10.44); Carbon Dioxide 20 mmol/L (22-29); Chloride 96 mmol/L (98-107); Estimated GFR-MDRD 5; Glucose 148 mg/dL (70-105); Potassium 3.2 mmol/L (3.5-5.1); Sodium 133 mmol/L (136-145)
[2019-01-26 07:22] LABS: Actual Bicarbonate (HCO3a) 19.8 mEq/L (22-28); Base Excess (BEa) -3.5 mEq/L (-2.0 to +3.0); CO2 Tension 28.7 mmHg (35.0-45.0); Calcium, Ionized 1.09 mmol/L (1.12-1.30); Carboxyhemoglobin (COHb) 1.4 gm% (0.0-3.0); Hemoglobin (Hb) 8.2 g/dL (12.0-16.0); O2 Tension (PaO2) 68.1 mmHg (80.0-100.0); Potassium - ABG Lab 3.31 mmol/L (3.70-5.30); pH, Arterial 7.46 (7.35-7.45)
[2019-01-26 07:35] LABS: ALV-art Gradient 109.925 (0-20); Puncture Site RA
--- NOTE | 2019-01-26 08:04 | ULT ---
Venous duplex sonogram left upper extremity HISTORY: Left arm pain and edema. FINDINGS: Good color and spectral Doppler flow within the left internal jugular and subclavian veins, the left axillary, brachial, and cephalic veins. Upper arm basilic vein is patent. In the lower arm basilic vein, there are internal echoes with incom plete compressibility and lack of flow. Soft tissue swelling throughout the arm. IMPRESSION: Occlusive thrombus of the basilic vein of the left lower arm. No deep venous system invol vement is apparent.
[2019-01-26] MEDS: Sevelamer Carbonate 800 MG TAB PO SCH ×3 (08:37→16:57)
[2019-01-26] MEDS: Acetaminophen 650 MG/20.3 ML UDCUP PER TUBE PRN ×3 (08:39→16:57)
[2019-01-26] MEDS: Pantoprazole 40 MG VIAL IVP SCH (08:39)
[2019-01-26] MEDS: Calcitriol 0.25 MCG CAP PO SCH (08:39)
[2019-01-26] MEDS: Metoclopramide HCl 10 MG/2 ML VIAL IVP SCH ×3 (08:41→20:48)
--- NOTE | 2019-01-26 08:58 | PRG ---
DATE OF SERVICE: 01/26/2019 Ms. Nikhil Stewart is now hospital day 5 and postoperative day 5 from intracerebral hemorrhage, which consisted of an intraparenchymal component, subarachnoid component, and a subdural component. She is now status post hemicraniectomy. She has had a CT angiogram and a conventional angiogram. None of which revealed an obvious source for her hemorrhage. Neurologically over the past several days, she has been stable. She does open her eyes periodically to voice. She can follow commands as well with the right upper extremity. Per report, she does periodically move the lowers spontaneously and to stimulation. She has a very weak movement to deep stimulation in the left upper extremity. Her drain has minimal output and we will remove that today. I have discussed her case this morning with Dr. Sun. We both agree that she is a good candidate for PEG and trach at this point in time. She continues to receive dialysis and is being followed by our Nephrology colleagues. She remains currently in stable condition but with a very poor prognosis. I will touch base with her family today to update them. Job ID: [id number] [facility]
--- NOTE | 2019-01-26 09:52 | PRG ---
DATE OF SERVICE: 01/26/2019 SUBJECTIVE: Ms. Nikhil Stewart remains unresponsive. Her tongue is still little swollen. OBJECTIVE: VITAL SIGNS: Heart rate 112, blood pressure 137/58, and respiratory rate 20. LUNGS: Clear. HEART: Regular rhythm. ABDOMEN: Soft and nontender. EXTREMITIES: Without asymmetry or edema. LABORATORY DATA: White count 11.1, hemoglobin 8.5, platelets 233. Sodium 133, potassium 3.2, chloride 96, bicarb 20, BUN 54, and creatinine 9.58. IMPRESSION: 1. Parenchymal brain hemorrhage. 2. End-stage renal disease. 3. Status post craniectomy. PLAN: Continue supportive care. I think a tracheostomy and PEG at this point would be reasonable, and we will facilitate weaning from mechanical ventilation. Discussed the above with Dr. Rizzo. I have put in a consult to General Surgery for this and this will get done within the next few days hopefully. Job ID: [id number]
--- NOTE | 2019-01-26 10:13 | RAD ---
SINGLE VIEW CHEST: Date: 01/26/19 COMPARISON: 01/25/19. HISTORY: Ventilated patient with respiratory failure. FINDINGS: Single view of the chest shows an enlarged but stable cardiomediastinal silhouette. The lines and tub es are unchanged in position. There is no evidence of consolidation, mass, or pleural effusion. IMPRESSION: Stable exam. POS: [facility]
--- NOTE | 2019-01-26 13:03 | ULT ---
BILATERAL LOWER EXTREMITY VENOUS ULTRASOUND VESSEL MAPPING: HISTORY: End stage renal disease. Dialysis access. TECHNIQUE: Wilburn scale, color flow, Doppler imaging with spectral waveform analysis performed of the left and rig ht upper extremity venous system. FINDINGS: RIGHT UPPER EXTREMITY: Cephalic vein: Proximal humerus 4.0 mm Mid humerus 2.0 mm Distal humerus 2,4 mm Antecubital fossa 4.2 mm The forearm is clotted. Basilic vein: Proximal humerus 4.5 mm Mid humerus 4.6 mm Distal humerus 4.1 mm Antecubital fossa 2 mm Proximal forearm 1.9 mm Mid forearm 2.9 mm Distal forearm 2.2 mm Brachial artery 4.7 mm Radial artery 2.5 mm Ulnar artery 2.7 mm LEFT UPPER EXTREMITY: Cephalic vein: Proximal humerus 1,8 mm Mid humerus 1.0 mm Distal humerus 1.3 mm Antecubital fossa 1.1 mm Proximal forearm 1.0 mm Mid forearm 1.8 mm Distal forearm 1.9 mm Basilic vein: Proximal humerus 2,7 mm Mid humerus 2.7 mm Distal humerus 2.3 mm Antecubital fossa 2.4 mm Proximal forearm 2.4 mm Mid to distal forearm clotted. Brachial artery 3.8 mm Radial artery 1.7 mm Ulnar artery 2.2 mm There is bilateral upper extremity edema. IMPRESSION: Venous mapping as above. POS: [facility]
[2019-01-26] MEDS ORDERED: CEFAZOLIN 2 GM, Admixture Fee 1 EACH in Sodium Chloride 0.9% 100 ML IVPB SCH (14:15)
--- NOTE | 2019-01-26 15:42 | PRG ---
DATE OF SERVICE: 01/26/2019 SUBJECTIVE: The patient was seen and examined in ICU. Remains intubated. OBJECTIVE: GENERAL: This is a thin-built female who is in ICU, intubated. VITAL SIGNS: Temperature 100.8, pulse 114, respiratory rate 22, and blood pressure 133/61. HEENT: Intubated. CV: S1 and S2 heard. RESPIRATORY: Clear. GI: Abdomen is soft MUSCULOSKELETAL: 1+ edema. DERMATOLOGIC: No skin rash. NEUROLOGIC: Intubated. LABORATORY DATA: Potassium 3.2, BUN is 54, and creatinine is 9.5. ASSESSMENT AND PLAN: 1. End-stage renal disease. Continue on peritoneal dialysis for today. Plan is to assist hemodialysis after catheter placement tomorrow. 2. Hypertension. 3. Anemia. 4. Edema, controlled. Prognosis is guarded. We will continue dialysis if tolerated. Job ID: [id number]
--- NOTE | 2019-01-26 16:08 | CON ---
DATE OF CONSULTATION: HISTORY OF PRESENT ILLNESS: Ryder Stewart is a 23-year-old female, who unfortunately presented to this hospitalization with a hemorrhagic stroke, seen by Dr. Napoleon Rizzo. She was seen in the emergency room on 01/21/2019, undergoing radiological workup for a diffuse subarachnoid hemorrhage, likely secondary to an aneurysmal rupture. She was transferred from [facility] with GCS 14, but deteriorated with vomiting. On 01/21/2019 at 0800 hours, the patient underwent a right frontal temporoparietal craniectomy for decompression. She has respiratory failure. I have been asked to see her by Dr. Sun for placement of tracheostomy and a PEG tube. In 2014, I placed a laparoscopic peritoneal dialysis catheter, which she has been using for dialysis since that time. At that time, the patient had a right arm Amari fistula. Venous thrombectomy was performed and outflow evaluated through a 3 mm coronary dilator. Venous thrombectomy was performed because of IV access and thrombus. Unfortunately, this Amari fistula is clotted. She initially had evaluation of her more proximal forearm vein finding it to be of good caliber. Thus, the Amari fistula was formed. When I initially saw her this morning, a repeat ultrasound was ordered. Previous ultrasound assessment of her veins for dialysis access in 2014 revealed the cephalic vein in the upper arm to be thrombosed in certain areas. On today's venous ultrasound evaluation, her cephalic vein in the right is 4, 2.0, 2.4 and 1.2 cm. The forearm is thrombosed. Basilic vein is of good caliber. Left upper extremity cephalic vein is 1.8, 1.0, 1.3 and 1.1 mm. Her basilic vein on the right is 4.5, 4.6, 4.1, and 2 mm. Considering that she will need a tracheostomy and a PEG tube, plan would be to place the hemodialysis catheter to rest her peritoneal dialysis for a period of time. It is also likely that she may need to go to an LTAC or assisted where peritoneal dialysis may not be readily performed. I have discussed with Dr. Espino. Plan at this time would be to place a hemodialysis catheter, tracheostomy, PEG tube, and evaluate her right arm for more proximal fistula. Hopefully, this will mature with time as she uses at her young age as she should have a fistula formed if possible. Unfortunately, IV access to her right arm previously has thrombosed some of her forearm veins and made her Amari fistula fail. Hopefully, she will have a functioning fistula in her upper arm. We will plan this on tomorrow afternoon. I have discussed this with the family and questions answered. ALLERGIES: NONE. SOCIAL HISTORY: Tobacco, none. Alcohol, none. MEDICATIONS: As an outpatient, 1. Rocaltrol. 2. Renvela. 3. Colace. 4. Carvedilol. 5. Nifedipine. PAST SURGICAL HISTORY: Craniotomy; in 2015, laparoscopic PD catheter and Amari fistula, subsequently thrombosed. 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 PHYSICAL EXAMINATION: The patient opens her eyes to voice. She moves all extremities. She does follow commands well with her right upper extremity. She moves her lower extremities to stimulation and has limited movement of left upper extremity. Peritoneal dialysis catheter in left lower quadrant with Amari fistula. Scar in right wrist, thrombosed. ASSESSMENT: 1. Subarachnoid hemorrhage, status post craniectomy, neurologically stable. 2. Respiratory failure. 3. End-stage renal disease, has been on peritoneal dialysis with a previous right Amari fistula, which is thrombosed. 4. In 2015, preoperative venous ultrasound revealed thrombus in the cephalic vein in the upper arm, but this appears to have resolved. She does have a basilic vein, which is patent in the upper arm. PLAN: At this time, I have discussed with Dr. Espino. We will plan placement of right arm fistula, hemodialysis catheter, tracheostomy, and PEG tube. We will plan this for tomorrow afternoon. Job ID: [id number]
[2019-01-26] MEDS ORDERED: Budesonide 0.5 MG/2 ML NEB ONE (20:16)
[2019-01-27] MEDS: niMODipine 30 MG CAP PO SCH ×6 (01:25→22:08)
[2019-01-27] MEDS: niCARdipine 50 MG in Sodium Chloride 0.9% 250 ML 230 ML IVPB SCH ×2 (01:29→15:49)
[2019-01-27] MEDS: Metoclopramide HCl 10 MG/2 ML VIAL IVP SCH ×3 (03:06→15:33)
[2019-01-27 04:51] LABS: Anion Gap 24 mmol/L (10-20); BUN (Urea Nitrogen) 60 mg/dL (7.0-18.7); Band 29 % (5-11); Calc. Creatinine Clearance 7 mL/min (70-130); Calcium 8.7 mg/dL (7.8-10.44); Carbon Dioxide 16 mmol/L (22-29); Chloride 96 mmol/L (98-107); Estimated GFR-MDRD 5; Glucose 173 mg/dL (70-105); Hemoglobin 12.2 g/dL (12.0-16.0); Lymphocytes 4 % (21-51); MDiff Complete? YES; Mean Corpuscular HGB CONC 34.7 g/dL (32.0-36.0); Mean Corpuscular Hemoglobin 30.2 pg (27.0-31.0); Mean Corpuscular Volume 86.9 fL (78.0-98.0); Mean Platelet Volume 8.9 fL (7.4-10.4); Monocytes 7 % (0-10); Neutrophil 60 % (42-75); Platelet Count 157 thou/uL (130-400); Potassium 3.3 mmol/L (3.5-5.1); RBC Distribution Width 15.9 % (11.5-14.5); Red Blood Cell (RBC) Count 4.03 mill/uL (4.20-5.40); Sodium 133 mmol/L (136-145); White Blood Cell (WBC) Count 7.7 thou/uL (4.8-10.8)
[2019-01-27] MEDS: CEFAZOLIN 2 GM, Admixture Fee 1 EACH in Sodium Chloride 0.9% 100 ML IVPB SCH ×2 (06:14→13:57)
[2019-01-27] MEDS: Propofol 1,000 MG/100 ML VIAL IV PRN (06:35)
--- NOTE | 2019-01-27 07:47 | RAD ---
EXAM: XR Chest 1 View Portable PROVIDED CLINICAL HISTORY: On ventilator. Follow-up evaluation. COMPARISON: 01/26/2019 FINDINGS: Endotracheal tube, nasogastric tube, and left subclavian central venous catheter remain in place and unchanged in position. Tip of the central venous catheter again overlies the region of the right atrium. There is patchy increased density in the left hilar region with patchy increased density and suggestion of consolidation in the retrocardiac region left lung base. Findings may be related to volume loss and/or developing pneumonia. Right lung is clear. No other interval change. IMPRESSION: 1. Patchy increased density left lung base and in the left hilar region which may be attributable to atelectasis and/or developing pneumonia. Continued follow-up to resolution is recommended. 2. Lines and tubes stable in position. Tip of the central venous catheter again overlies the region o f the right atrium.
[2019-01-27] MEDS: Labetalol HCl 100 MG/20 ML VIAL SLOW IVP PRN (09:14)
[2019-01-27] MEDS: Sevelamer Carbonate 800 MG TAB PO SCH ×3 (09:50→17:37)
[2019-01-27] MEDS: Calcitriol 0.25 MCG CAP PO SCH (09:51)
[2019-01-27] MEDS: Pantoprazole 40 MG VIAL IVP SCH (09:52)
--- NOTE | 2019-01-27 10:11 | CT ---
HEAD CT NONCONTRAST: Date: 01/27/19 INDICATION: History of hypertension, aneurysm, altered mental status change. FINDINGS: Redemonstration of diffuse intracranial hemorrhage, both extra-axial and parenchyma, with extracrania l herniation underlying right side craniotomy flap. Persistent effacement of the ventricular system, notably in the right frontal horn, with associated leftward subfalcine herniation, which measures 11 mm at the level of the septum pellucidum. There is progressive cerebral edema notably involving the a nterior cerebrum, right greater than left, which may be on the basis of cytotoxic and/or vasogenic ed bradley. Scattered paranasal sinus mucosal thickening is present. Slight dilatation of the left temporal horn is present, with redemonstration of intraventricular hemo rrhagic extension. IMPRESSION: Progressive cerebral edema and increasing mass effect. Leftward subfalcine herniation measures approx imately 11 mm at level of septum pellucidum. The progressive edema may relate to a component of cytot oxic and vasogenic edema, as there is suggestion of cytotoxic edema localizing to the right CRISTINA distr ibution. Persistent diffuse intracranial hemorrhage both intra-axial and extra-axial in location present with intraventricular hemorrhagic extension. Extracranial herniation and underlying craniotomy flap remains. Recommend continued imaging follow-up. POS: [facility]
[2019-01-27] MEDS ORDERED: Dextrose 50% Abboject 50 ML SYRINGE ONE (11:11)
[2019-01-27] MEDS ORDERED: EPINEPHrine 1 MG/10 ML Abboject SYRINGE ONE (11:11)
[2019-01-27] MEDS ORDERED: Calcium Chloride 1 GM/10 ML Abboject SYRINGE ONE (11:11)
[2019-01-27] MEDS ORDERED: Amiodarone 150 MG/3 ML VIAL ONE (11:11)
[2019-01-27] MEDS ORDERED: Sodium Bicarb 50 MEQ/50 ML Abboject 8.4% SYRINGE ONE (11:11)
[2019-01-27] MEDS ORDERED: Heparin 1,000 UNITS/ML VIAL ONE (11:11)
--- NOTE | 2019-01-27 11:31 | PRG ---
DATE OF SERVICE: Ms. Nikhil Stewart is now postop day 6 following a decompressive hemicraniectomy in the emergent setting for large intracerebral hemorrhage. She has been following commands stably over the last several days in the right upper extremity and spontaneously moving the right lower extremity. There has not been much in the way of movement in the left upper, left lower, other than small movements in response to deep painful stimuli. Nurse states that this is even the case yesterday while still on sedation. This morning sedation has been turned off for about 5 minutes and she is fluttering her eyes and pupils are equally round and reactive to light, measuring around 3 mm each. However, she is not following much in terms of commands and is only moving very minimal in the right upper and right lower extremities, even to deep pain. After nurse reported back that even after another hour of being off sedation, she is still about the same. We will repeat a CT scan this morning to evaluate for any changes in the intracranial pathology already present. Lab work appears to be relatively stable, although still somewhat on the low side regarding sodium and potassium, we know that this will continue to be an ongoing and high complexity issue based off her renal history. Job ID: [id number]
[2019-01-27] MEDS ORDERED: Mannitol 12.5 GM/50 ML IV SCH ×2 (12:15→13:30)
[2019-01-27] MEDS: Scopolamine 1.5 mg/72 hour Patch TD SCH (13:25)
--- NOTE | 2019-01-27 14:58 | PRG ---
DATE OF SERVICE: 01/27/2019 SUBJECTIVE: The patient was seen and examined in ICU. She remains intubated and nonverbal. No family at the bedside. OBJECTIVE: GENERAL: This is a thin built female, in ICU, intubated. VITAL SIGNS: Temperature 99.3, pulse 120, respiratory rate 20, and blood pressure 121/66. CV: S1 and S2 heard. HEENT: Intubated. RESPIRATORY: Clear anteriorly. GI: Abdomen is soft. MUSCULOSKELETAL: 2+ edema. DERMATOLOGIC: No skin rash. NEUROLOGIC: Intubated. LABORATORY DATA: Potassium is 3.3, BUN is 60, creatinine is 9.9. ASSESSMENT AND PLAN: 1. End-stage renal disease. Plan is to assist hemodialysis. Plan is to have fistula placement and tunneled dialysis catheter placed. 2. Hypokalemia. We will use 4K bath. 3. Hypertension, stable, wean off Cardene drip. 4. Anemia, we will monitor. 5. Edema, remove fluid if tolerated with dialysis. 6. We will continue to close monitor. Plan is to switch on hemodialysis with close monitor. Job ID: [id number]
--- NOTE | 2019-01-27 16:16 | PRG ---
DATE OF SERVICE: 01/27/2019 SUBJECTIVE: Nikhil Stewart has been hemodynamically stable. OBJECTIVE: VITAL SIGNS: She is afebrile. Heart rate is 115 to 120, blood pressure 120/66, respiratory rate 20s. GENERAL: Intake and output something consistently positive 1-1/2 to 2-1/2 L a day. Weight is going up as well. She is developing peripheral edema. Her peritoneal dialysis has been unsuccessful at removing any significant volume of fluid. She is tentatively for hemodialysis tonight. She is for a trach and a PEG later today. LUNGS: Clear. HEART: Regular rhythm. ABDOMEN: Soft. LABORATORY DATA: White count 7.7, hemoglobin 12.2, platelets 157. Sodium 133, potassium 3.3, chloride 96, bicarb 16, BUN 60, creatinine 9.94. Chest x-ray is hazy at her left base. It is likely secondary atelectasis, mucus plugging. We can successfully diurese her. We will re-evaluate her chest x-ray in the morning. Hopefully, this will be improved. Clinically, she does not appear to have pneumonia at this time, although she has developed an increase in bands on her peripheral smear (29% today). We will start her on adjusted dose Zosyn and follow her radiograph. I met with family, answered all their questions. I have explained to them that whether or not she recovers to a point where she is at least reasonably functional will only be determined after months of care. I explained to them that this will be a long process. Critical care time 35 minutes. Job ID: [id number] MTDD
[2019-01-27] MEDS ORDERED: Fentanyl 100 MCG/2 ML VIAL ONE (16:20)
[2019-01-27] MEDS ORDERED: Heparin 10,000 UNITS/1 ML VIAL ONE (16:25)
[2019-01-27] MEDS ORDERED: Sodium Chloride 0.9% 20 ML ONE (16:25)
[2019-01-27] MEDS ORDERED: Bupivacaine PF 0.5% 30 ML VIAL ONE (16:25)
[2019-01-27] MEDS ORDERED: Lidocaine 2% PF 5 ML VIAL ONE (16:25)
[2019-01-27] MEDS ORDERED: Bupivacaine HCl 0.5%/Epinephrine 1:200,000/PF 30 ml Vial ONE (16:26)
[2019-01-27] MEDS ORDERED: Rocuronium Bromide 10 MG/ML (10ML VIAL) ONE (17:00)
[2019-01-27] MEDS ORDERED: PROPOFOL 200 MG/20 ML VIAL ONE (17:00)
--- NOTE | 2019-01-27 19:11 | RAD ---
SUPINE PORTABLE CHEST: 01/27/2019 6:33 p.m. INDICATIONS: Assess tube placement. COMPARISON: exam done earlier today at 5:14 a.m. FINDINGS: A tracheostomy device has been placed and appears in adequate position. A dual-lumen central line perez s been placed near the right jugular and overlies the SVC. The left subclavian catheter is unchanged . A left perihilar infiltrate is again noted. Right basilar opacification is more prominent, possibly representing atelectasis or infiltrate. Evidence of small effusions. Mild vascular engorgement. POS: AGW
[2019-01-27 19:38] LABS: Actual Bicarbonate (HCO3a) 14.9 mEq/L (22-28); Base Excess (BEa) -12.5 mEq/L (-2.0 to +3.0); CO2 Tension 40.3 mmHg (35.0-45.0); Calcium, Ionized 1.06 mmol/L (1.12-1.30); Carboxyhemoglobin (COHb) 0.9 gm% (0.0-3.0); Hemoglobin (Hb) 8.6 g/dL (12.0-16.0); Potassium - ABG Lab 4.79 mmol/L (3.70-5.30)
[2019-01-27 19:50] LABS: O2 Tension (PaO2) 52.1 mmHg (80.0-100.0); pH, Arterial 7.19 (7.35-7.45)
[2019-01-27 19:51] LABS: ALV-art Gradient 396.625 (0-20); Puncture Site LFA
[2019-01-27 20:17] LABS: INR-International Normal Ratio 3.9; Prothrombin Time 37.6 SEC (12.0-14.7)
[2019-01-27 20:48] LABS: Platelet Count 213 thou/uL (130-400)
--- NOTE | 2019-01-27 20:53 | RAD ---
PORTABLE SUPINE CHEST: Date: 01/27/19 HISTORY: Status post trach. Shortness of breath. Comparison made to film at 1833 hours. FINDINGS: Tracheostomy device remains in adequate position. Central lines are unchanged and appear adequately p ositioned. Confluent left perihilar infiltrate again noted, unchanged. Opacification in right lung base is again noted and is unchanged. Left lung base opacification is again noted and is unchanged. IMPRESSION: Bilateral infiltrates, unchanged from the recent exam at 1833 hours. POS: AGW
[2019-01-27 20:58] LABS: Lactic Acid 1.4 mmol/L (0.5-2.2)
[2019-01-27 21:02] LABS: Hemoglobin 7.8 g/dL (12.0-16.0); Mean Corpuscular HGB CONC 34.4 g/dL (32.0-36.0); Mean Corpuscular Hemoglobin 30.7 pg (27.0-31.0); Mean Corpuscular Volume 89.3 fL (78.0-98.0); Mean Platelet Volume 9.4 fL (7.4-10.4); Platelet Count 213 thou/uL (130-400); Red Blood Cell (RBC) Count 2.53 mill/uL (4.20-5.40); White Blood Cell (WBC) Count 5.1 thou/uL (4.8-10.8)
[2019-01-27 21:06] LABS: PTT Greater than 250.0 SEC (22.9-36.1)
[2019-01-27 21:15] LABS: ALT (SGPT) Less than 7 U/L (8-55); AST (SGOT) 18 U/L (5-34); Alkaline Phosphatase 92 U/L (40-150); Anion Gap 27 mmol/L (10-20); BUN (Urea Nitrogen) 67 mg/dL (7.0-18.7); Bilirubin, Total 0.4 mg/dL (0.2-1.2); Calc. Creatinine Clearance 8 mL/min (70-130); Calcium 7.9 mg/dL (7.8-10.44); Carbon Dioxide 14 mmol/L (22-29); Chloride 96 mmol/L (98-107); Estimated GFR-MDRD 5; Globulin 2.8 g/dL (2.4-3.5); Glucose 128 mg/dL (70-105); Potassium 4.8 mmol/L (3.5-5.1); Protein, Total 4.8 g/dL (6.0-8.3); Sodium 132 mmol/L (136-145)
[2019-01-27 21:15] LABS: FSP-Qualitative ABNORMAL (Normal); FSP-Semiquantitative >=5 & <20 mcg/mL (Less than 5)
[2019-01-27 21:21] LABS: Band 37 % (5-11); Lymphocytes 24 % (21-51); MDiff Complete? YES; Monocytes 2 % (0-10); Myelocyte 1 % (0-0); Neutrophil 36 % (42-75); Nucleated RBC 1 % (0)
[2019-01-27 21:27] LABS: Fibrinogen 520 mg/dL (253-463); INR-International Normal Ratio 3.9; Prothrombin Time 37.6 SEC (12.0-14.7)
[2019-01-27 21:31] LABS: Actual Bicarbonate (HCO3a) 13.7 mEq/L (22-28); Base Excess (BEa) -11.7 mEq/L (-2.0 to +3.0); CO2 Tension 28.8 mmHg (35.0-45.0); Calcium, Ionized 0.97 mmol/L (1.12-1.30); Carboxyhemoglobin (COHb) 1.5 gm% (0.0-3.0); O2 Tension (PaO2) 62.5 mmHg (80.0-100.0); Potassium - ABG Lab 4.46 mmol/L (3.70-5.30)
[2019-01-27 21:37] LABS: Puncture Site LFA
[2019-01-27 21:37] LABS: D-Dimer Test 0.74 *mcg/mL (0.27-0.43)
[2019-01-27] MEDS ORDERED: Piperacillin/Tazobactam 2.25 GM in Sodium Chloride 0.9% 100 ML IVPB SCH (22:00)
[2019-01-27] MEDS ORDERED: Vancomycin HCl 500 MG in Sodium Chloride 0.9% 100 ML IVPB SCH (22:15)
[2019-01-27] MEDS ORDERED: Vancomycin HCl 1 GM in Premix Bag 1 BAG IVPB SCH (22:15)
[2019-01-27] MEDS ORDERED: Vancomycin HCl 250 MG in Sodium Chloride 0.9% 100 ML IVPB SCH (22:15)
[2019-01-27] MEDS ORDERED: HOLD VANCOMYCIN FOR LEVEL >20 FS SCH (22:15)
[2019-01-27] MEDS ORDERED: Vancomycin HCl 750 MG in Sodium Chloride 0.9% 250 ML 250 ML IVPB SCH (22:15)
[2019-01-27] MEDS ORDERED: SODIUM CHLORIDE 0.9% IVPB SCH (22:30)
[2019-01-27] MEDS ORDERED: TAZOBACTAM IVPB SCH (22:30)
[2019-01-27] MEDS ORDERED: Mannitol 12.5 GM/50 ML SLOW IVP SCH (22:30)
[2019-01-27] MEDS ORDERED: Vancomycin HCl 1.5 GM in Sodium Chloride 0.9% 250 ML 300 ML IVPB SCH (22:30)
[2019-01-27] MEDS ORDERED: PIPERACILLIN IVPB SCH (22:30)
[2019-01-27 22:37] LABS: Lipase 503 U/L (8-78); Triglycerides 324 mg/dL (Less than 150)
[2019-01-27] MEDS ORDERED: Phytonadione 10 MG/ML AMP SLOW IVP SCH (22:45)
--- NOTE | 2019-01-27 23:04 | CT ---
Head CT without contrast 01/27/2019 10:46pm: COMPARISON: 01/27/2019 9:16am HISTORY: Ruptured aneurysm, intracranial hemorrhage, bleeding from nose, mouth, and tracheostomy tube TECHNIQUE: Axial CT imaging at 5 mm intervals from vertex through skull base without contrast FINDINGS: There is prominent diffuse cerebral edema, most prominent near the vertex, with loss of gra y-white differentiation, which may signify infarction. There is a calvarial flap associated with a right frontal craniotomy. Secondary to marked cerebral edema there is herniation of brain parenchyma beyond the confines of the craniotomy site, probably slightly worsened when compared to the prior examination. There is right to left midline shift measuring approximately 7 mm at the level of the septum pellucid um and approximately 1.1 cm at the level of the third ventricle, similar when compared to the prior exam. There is stable extra-axial hemorrhage anterior to the alverto. There is extra-axial hemorrhage in the suprasellar region and supraclinoid region on the left with extensive bilateral subarachnoid hemorrhage within bilateral sylvian fissures and throughout numerous cortical sulci of bilateral cere bral hemispheres. There is intraventricular blood within bilateral lateral ventricles, stable. There is stable subdural blood anterior to the right temporal lobe. Stable intra-axial hemorrhage suspected lateral to right putamen. There is partial opacification of the maxillary sinuses, sphenoid sinuses, mastoid air cells, and eth moid air cells. IMPRESSION: Extensive intracranial hemorrhage, not significantly changed. No significant change in th e right to left midline shift. Cerebral edema near the vertex has probably worsened with loss of velázquez-white differentiation near the vertex bilaterally suspicious for possible developing infarction. Tish, steam brush operator in the critical care unit, made aware via phone by Dr. De La Torre at 11:00 PM 01/27/2019.
--- NOTE | 2019-01-27 23:12 | PRG ---
DATE OF SERVICE: 01/27/2019 SERVICE: Pulmonary Medicine. INTERVAL HISTORY: I got a "come quick" phone call. The patient returned from her tracheostomy. When she went down, she was on 35% FiO2. On returning, she was on 100% FiO2 and her saturations were in the mid 70s. Her PEEP was increased. She was having significant bleeding from the tracheostomy around the neck. She was also having blood coming from the bilateral nares. I was told that she did not have any NG tube placed. She previously had an OG tube. She ended up having an elective tracheostomy, and percutaneous feeding tube placed. 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 She was started on some Zosyn earlier. Multiple different interventions were performed. Some of these were discussed below. PHYSICAL EXAMINATION: VITAL SIGNS: Currently, afebrile. She had a temperature of 100.8 at 0400 this morning. Pulse 127, blood pressure 123/73, respirations 27, saturation 95% on 100% FiO2 and a PEEP of 10. GENERAL: The patient is obtunded. HEENT: Pupils are minimally reactive. They are fairly dilated. She is over-breathing the ventilator. HEART : Regular. LUNGS: Decent air entry. There is no prolonged expiratory phase. The rhonchi and crackles are both appreciated. No wheezing. ABDOMEN: Soft. It is a little distended. Bowel sounds are hypoactive. : No Sanchez catheter in place. LABORATORY DATA: WBC 5.1, hemoglobin 7.8 and downtrending, platelets 213,000. INR 3.9, fibrinogen however is 520. PT and PTT are both extraordinarily elevated. D-dimer is currently pending. Creatinine 10.32, BUN 67. Bicarb 14, anion gap 27. Basic metabolic profile is otherwise unremarkable. Lactate however is only 1.4. Liver function studies are unremarkable and the synthetic function of the liver appears to be intact. Phenytoin 13.9. IMAGING DATA: Chest x-ray demonstrates no significant interval change. There is interval placement of a tracheostomy tube. Appears to be bilateral lung infiltrates present. The left one is in the mid lung zone. The right one is at the base and possibly consistent with a volume overload state. Left subclavian central venous catheter terminates in the right atrium. The right tunneled IJ catheter terminates in good position. ASSESSMENT: 1. Acute hypoxic respiratory failure. 2. Coagulopathy, unknown etiology. DISCUSSION AND PLAN: We proceeded with a bronchoscopy. I liberated multiple mucus plugs. This seemed to help her oxygenation in touch. I placed on antibiotics. I will add blood cultures to her next fever. As of the INR of 3.9, and bleeding from the tracheostomy site, inside the lungs, and from the bilateral nares without provocation, I will give her 4 units of FFP. We will trend hemoglobins through time. Platelets continue to fall off, DIC and HIT will be considered within our differential, though it does not appear to me that she had any recent heparin. Empirically give her some steroids. At this point, she is critically ill. If this bleeding diathesis does not turn around, possibility she will not be able to recover from this event. The family has been updated at bedside. CRITICAL CARE TIME: 30 minutes. Job ID: [id number]
[2019-01-27 23:16] VITALS: TEMP 98.7
[2019-01-27] MEDS ORDERED: Piperacillin/Tazobactam 3.375 GM in Sodium Chloride 0.9% 100 ML IVPB SCH (23:59)
--- NOTE | 2019-01-28 00:05 | ULT ---
Right upper quadrant ultrasound: 01/27/2019 COMPARISON: None HISTORY: Pancreatitis TECHNIQUE: Multiplanar grayscale sonographic imaging of the right upper quadrant provided. FINDINGS: There is small volume fluid adjacent to the pancreatic head, consistent with the provided h istory of pancreatitis. The body and tail of the pancreas are obscured by bowel gas. There is fluid within the stomach. No gallbladder wall thickening or pericholecystic fluid. No gallstones are noted. The right kidney appears markedly atrophic and echogenic suggesting renal medical disease. Detailed a ssessment of the right kidney is thus suboptimal. The common bile duct measures 3 mm, within normal limits. IMPRESSION: No cholelithiasis. Fluid adjacent to pancreatic head. Atrophic echogenic right kidney.
[2019-01-28] MEDS: methylPREDNISolone Sod Succ 40 MG VIAL IVP SCH ×2 (00:16→06:38)
[2019-01-28] MEDS: CEFAZOLIN 2 GM, Admixture Fee 1 EACH in Sodium Chloride 0.9% 100 ML IVPB SCH ×2 (00:16→06:38)
[2019-01-28] MEDS: Labetalol HCl 100 MG/20 ML VIAL SLOW IVP PRN (00:18)
[2019-01-28 00:19] VITALS: BP 144/65
[2019-01-28] MEDS: Metoclopramide HCl 10 MG/2 ML VIAL IVP SCH ×2 (00:47→05:50)
[2019-01-28 00:51] LABS: HBSAg Index 0.24 S/CO (0-0.99); Hep B Surf Ag Non-Reactive S/CO (NonReactive)
[2019-01-28] MEDS: niMODipine 30 MG CAP PO SCH ×2 (00:58→05:50)
--- NOTE | 2019-01-28 01:42 | OP ---
DATE OF PROCEDURE: 01/27/2019 PREOPERATIVE DIAGNOSES: Subarachnoid hemorrhage, craniectomy, end-stage renal disease, respiratory failure, malnutrition. POSTOPERATIVE DIAGNOSES: Subarachnoid hemorrhage, craniectomy, end-stage renal disease, respiratory failure, malnutrition. PROCEDURES PERFORMED: Right IJ cuffed tunneled hemodialysis catheter, ultrasound and fluoroscopy use. #8 Shiley tracheostomy tube. Percutaneous endoscopic gastrostomy tube. ANESTHESIA: General. INDICATIONS FOR PROCEDURE: I initially plan to place a right arm fistula, but her prognosis is guarded. She had a previous fistula to her right wrist Amari that has thrombosed previously. In 2014, ultrasound vein mapping suggested occlusive thrombus from iatrogenic IV access, but repeat venous ultrasound suggested cephalic vein is patent. This can be done later if necessary. DESCRIPTION OF PROCEDURE: The patient was taken to the operating room. Under general anesthesia, neck and chest were prepared with ChloraPrep, draped in routine fashion. Using ultrasound guidance, the right internal jugular vein was cannulated with a trocar catheter, J-wire threaded, trocar catheter removed. Skin site was enlarged sharply. Stab incision was made over the right chest, and using the tunneling device, pre-curved AngioDynamics cuffed-tunneled hemodialysis catheter tunneled between 2 incisions, placed the fabric cuff beneath the skin exit site. Catheter was secured with 2 interrupted sutures of 3-0 nylon. Biopatch sterile dressing applied. Small and medium size dilators were placed over the J-wire into the internal jugular vein and removed. Dilator and Peel-Away sheath were placed over the J-wire into superior vena cava and dilator and J-wire were removed. Catheter was placed over the Peel-Away sheath. Peel-Away sheath removed. Platysma was approximated with 4-0 Monocryl, skin with subdermal 4-0 Monocryl. [place] glue applied. Each port aspirated blood, flushed with saline solution and heparinized saline solution 1000 units of heparin per mL indicating volume of the port. Fluoroscopic images revealed good line placement. Incision was made above the manubrium, carried down through skin, subcutaneous tissue, platysma, identifying the strap muscles, reflected them laterally identifying the trachea below the cricoid and anterior window of the trachea excised over three cartilaginous rings and good hemostasis was obtained with cautery. #8 Shiley low-pressure cuff placed under direct visualization of the trachea and balloon inflated and connected to the ventilator. Good hemostasis was noted. Avitene was placed around the wound. Skin approximated with 3-0 Prolene and tracheostomy appliance secured to skin with 3-0 Prolene and sterile dressings applied. PEG tube undertaken. Endoscope placed per os under direct visualization using air insufflation passed throughout the mouth, esophagus into the stomach, noting a good indentation of left subcostal in the subxiphoid area medially. Incision was made and trocar catheter introduced percutaneously, visualized endoscopically within the gastric lumen and a wire induced, grasped with a snare, and brought out through the mouth Gastrostomy tube lubricated and connected to the wire and pulled back down through the mouth into the stomach, secured to the abdominal wall with fixation device and tailored to length and feeding device secured. The patient tolerated the procedure well. Job ID: [id number]
[2019-01-28 03:04] VITALS: BMI 24.0
--- NOTE | 2019-01-28 03:51 | OP ---
DATE OF PROCEDURE: 01/27/2019 SERVICE: Pulmonary Medicine. PROCEDURE PERFORMED: Fiberoptic bronchoscopy with, 1. Visual airway inspection. 2. Therapeutic suctioning of mucus plugs/blood from airway. PREPROCEDURE DIAGNOSIS: Acute hypoxic respiratory failure. POSTPROCEDURE DIAGNOSES: 1. Acute hypoxic respiratory failure. 2. Mucus plugging secondary to oozing of blood in to the airway. BRASS ROLLER: Sushil Sin MD MEDICATIONS USED: None. DESCRIPTION OF PROCEDURE: Time-out was performed identifying the correct procedure and patient with name and date of . A diagnostic fiberoptic bronchoscope was introduced through the tracheostomy tube. A tracheobronchial tree was carried out with clear identification of the right upper lobe, right middle lobe, right lower lobe, left upper lobe, lingula, and left lower lobe. There was extensive blood products in the airway itself. Multiple clots were suctioned. There was no additional oozing that I could identify falling into the airway. No specific endobronchial disease was identified. There was no significant purulent secretions present. The bronchoscope was subsequently removed from the patient. FINDINGS: 1. Extensive plugging secondary to oozing of blood from above the tracheostomy site. 2. No significant purulent secretions were identified. 3. No endobronchial disease was identified. SPECIMENS OBTAINED: None. COMPLICATIONS: None. ESTIMATED BLOOD LOSS: None from the procedure. FLUOROSCOPY TIME: None. DISPOSITION: The patient will remain on mechanical ventilation and recover in the ICU. Job ID: [id number]
[2019-01-28 03:58] LABS: Hemoglobin 4.4 g/dL (12.0-16.0); INR-International Normal Ratio 1.7; Mean Corpuscular HGB CONC 35.1 g/dL (32.0-36.0); Mean Corpuscular Hemoglobin 30.6 pg (27.0-31.0); Mean Corpuscular Volume 87.4 fL (78.0-98.0); Mean Platelet Volume 9.4 fL (7.4-10.4); Platelet Count 98 thou/uL (130-400); Prothrombin Time 19.6 SEC (12.0-14.7); RBC Distribution Width 15.9 % (11.5-14.5); Red Blood Cell (RBC) Count 1.45 mill/uL (4.20-5.40)
[2019-01-28 04:06] LABS: Anion Gap 21 mmol/L (10-20); BUN (Urea Nitrogen) 36 mg/dL (7.0-18.7); Calc. Creatinine Clearance 12 mL/min (70-130); Calcium 8.3 mg/dL (7.8-10.44); Carbon Dioxide 20 mmol/L (22-29); Chloride 99 mmol/L (98-107); Estimated GFR-MDRD 8; Glucose 69 mg/dL (70-105); Potassium 4.1 mmol/L (3.5-5.1); Sodium 136 mmol/L (136-145)
[2019-01-28 04:17] LABS: Hemoglobin 4.2 g/dL (12.0-16.0); Mean Corpuscular HGB CONC 34.2 g/dL (32.0-36.0); Mean Corpuscular Volume 90.5 fL (78.0-98.0); Mean Platelet Volume 9.7 fL (7.4-10.4); Platelet Count 119 thou/uL (130-400); RBC Distribution Width 15.6 % (11.5-14.5); Red Blood Cell (RBC) Count 1.34 mill/uL (4.20-5.40); White Blood Cell (WBC) Count 2.8 thou/uL (4.8-10.8)
[2019-01-28 04:20] LABS: PTT 49.6 SEC (22.9-36.1); Prothrombin Time 22.2 SEC (12.0-14.7)
[2019-01-28 04:21] LABS: Actual Bicarbonate (HCO3a) 18.9 mEq/L (22-28); Base Excess (BEa) -8.4 mEq/L (-2.0 to +3.0); CO2 Tension 52.7 mmHg (35.0-45.0); Calcium, Ionized 1.15 mmol/L (1.12-1.30); Carboxyhemoglobin (COHb) 0.8 gm% (0.0-3.0); Potassium - ABG Lab 4.22 mmol/L (3.70-5.30)
[2019-01-28] MEDS ORDERED: EPINEPHrine 1 MG/10 ML Abboject SYRINGE ONE (04:39)
[2019-01-28 04:44] LABS: Lactic Acid 11.2 mmol/L (0.5-2.2)
[2019-01-28 04:45] LABS: ALT (SGPT) Less than 7 U/L (8-55); AST (SGOT) 97 U/L (5-34); Alkaline Phosphatase 72 U/L (40-150); Anion Gap 27 mmol/L (10-20); BUN (Urea Nitrogen) 35 mg/dL (7.0-18.7); Bilirubin, Total 0.5 mg/dL (0.2-1.2); Calc. Creatinine Clearance 12 mL/min (70-130); Calcium 13.6 mg/dL (7.8-10.44); Carbon Dioxide 16 mmol/L (22-29); Chloride 101 mmol/L (98-107); Estimated GFR-MDRD 8; Globulin 2.2 g/dL (2.4-3.5); Glucose 64 mg/dL (70-105); Potassium 4.9 mmol/L (3.5-5.1); Protein, Total 4.2 g/dL (6.0-8.3); Sodium 139 mmol/L (136-145)
[2019-01-28] MEDS ORDERED: EPINEPHrine 1 MG, Admixture Fee 1 EACH in Dextrose 5% in Water 250 ML IVPB SCH (04:45)
[2019-01-28 04:53] LABS: Hemoglobin (Hb) 3.7 g/dL (12.0-16.0); O2 Tension (PaO2) 34.9 mmHg (80.0-100.0); pH, Arterial 7.17 (7.35-7.45)
[2019-01-28 04:54] LABS: ALV-art Gradient 612.225 (0-20); Puncture Site RFA
[2019-01-28 04:55] LABS: Band 33 % (5-11); Eosinophils 3 % (0-10); Lymphocytes 34 % (21-51); MDiff Complete? YES; Metamyelocyte 1 % (0-0); Monocytes 14 % (0-10); Myelocyte 1 % (0-0); Neutrophil 14 % (42-75); Nucleated RBC 1 % (0); Platelet Morphology Comment Appears Decreased
[2019-01-28 05:14] LABS: Band 15 % (5-11); Lymphocytes 70 % (21-51); MDiff Complete? YES; Monocytes 5 % (0-10); Neutrophil 10 % (42-75); Nucleated RBC 4 % (0)
[2019-01-28] MEDS ORDERED: EPINEPHrine 4 MG in Dextrose 5% in Water 250 ML IV SCH (05:15)
[2019-01-28] MEDS ORDERED: Dextrose 50% Abboject 50 ML SYRINGE ONE (05:39)
--- NOTE | 2019-01-28 06:21 | PRG ---
DATE OF SERVICE: 01/28/2019 Ms. Stewart underwent a tracheostomy yesterday afternoon. She had a hemodialysis catheter placed and a PEG tube placed. Dr. Sin performed a bronchoscopy on her through the trach and there were some secretions and minimal clot, but no significant bleeding problems at that time. The patient then underwent hemodialysis last night, which she apparently tolerated well. Dr. Deon Rizzo had spoke to the family regarding her intracranial bleed and craniectomy. Dr. Sin also had a discussion with the family later yesterday evening regarding her poor prognosis. Yesterday last night, her coags were checked at 7:56 p.m.; PT 37, INR 3.9, PTT greater than 250. The patient did not receive any anticoagulation except for that, placed on hemodialysis catheter at the time of surgery. Her planned fistula was canceled to avoid anticoagulation, especially considering her poor prognosis overall. This morning at 3 o'clock, her INR was 1.7. I was texted at 4:30 a.m. in the morning to call the ICU. I was informed that she had been coded on and off for the past 45 minutes. Report was that they had problem with ventilating her. They suctioned her and had very little clot out. Initially thought it was an occlusive clot, but there were no significant clots obtained. Chest x-ray last night at 7:48 revealed good hemodialysis catheter placement and some infiltrates in both lung alvarado. The patient had a CAT scan of the brain at 10:46 p.m. revealing extensive intracranial hemorrhage, no significant change. Ultrasound of abdomen was unremarkable. When I arrived, Anesthesia was present, both Dr. Kline and NETWORK RELATIONS CONSULTANT, Monty Lee. Nurse was present. Chest x-ray performed revealed a small right pneumothorax and diffuse lung infiltrates consistent with possible ARDS. The patient was on high-dose Levophed and epinephrine. Her pressure is in 70s to 80s. She was terribly edematous. She has small right pneumothorax. I talked to Dr. Sin per telephone. Dr. Sin communicated to the family her poor prognosis last night. Noting the events of last night after tracheostomy, she was having some ventilatory problems that I was not informed of. Dr. Sin performed the bronchoscopy noting no significant findings. His exam revealed good airway movements. Chest x-ray revealed the above findings. As noted above, this event occurred in the last 45 minutes, requiring intermittent CPR with changes in the chest x- ray as noted earlier this morning. The patient's face is terribly edematous. She appears to be in DIC. I discussed with the family, reiterated her poor prognosis as has been discussed with Dr. Rizzo and Dr. Sin and family desire to make her a DNR and discontinue care. They are visiting her before we stop the vasopressors. Job ID: [id number]
--- NOTE | 2019-01-28 08:19 | RAD ---
CHEST ONE VIEW: HISTORY: Ventilated patient. COMPARISON: Radiograph from the prior day. FINDINGS: There is extensive subcutaneous emphysema projecting over the neck bilaterally. Moderate right pneum othorax. There appear to be percutaneous leads projecting over the heart. Moderate left basilar pneumothorax. New left-sided chest tube. There are multifocal air space opacities projecting over the left chest, which are new. Tracheostomy tube is in place. New electrode projects over the right heart border. IMPRESSION: 1. Bilateral pneumothoraces with left indwelling thoracostomy tube. 2. Moderate subcutaneous emphysema of the neck and right chest. 3. Likely hemorrhage in the left upper lobe and right lower lobe. 4. New leads projecting over the left heart, as well as an electrode over the right hemithorax. The findings were discussed with the nursing staff at 7:55 a.m. CODE CR POS: OFF
[2019-01-28] MEDS ORDERED: Desmopressin Acetate 4 mcg/ml (1ml Chg) 10ml Vial SC SCH (09:00)
--- NOTE | 2019-01-29 13:40 | DIS ---
DATE OF ADMISSION: 01/21/2019 DATE OF DISCHARGE: 01/28/2019 SUMMARY: HISTORY: Ms. Nikhil Stewart was a 23-year-old woman, who presents to the emergency department at [facility] on January 21, 2019 and subsequently passed on January 28, 2019. ADMISSION DIAGNOSES: Altered mental status, intracerebral hemorrhage, subarachnoid hemorrhage. CONSULTATIONS: Ordered to Critical Care, General surgery, and Nephrology. HOSPITAL COURSE: Her hospital course was complicated significantly by the end-stage renal disease, requiring dialysis. Surgery was performed in the way of decompressive hemicraniectomy for vasogenic edema and acute midline shift in the setting of large intracerebral hemorrhage. Ultimately, the patient coded and was unable to be resuscitated and early in the morning of January 28, 2019. Job ID: [id number]
== END 2019-01-28 06:17 | disposition expired | DRG 3 ==
LOC: ERS 04:13 → SDC 06:18 → CCU 08:52
PROVIDERS: ADMIT Neurological Surgery; ATTEND Neurological Surgery
PROC: 00N00ZZ Release Brain, Open Approach (ICD-10-PCS; principal; 2019-01-21)
PROC: 5A1955Z Respiratory Ventilation, Greater than 96 Consecutive Hours (ICD-10-PCS; 2019-01-21)
PROC: B31R1ZZ Fluoroscopy of Intracranial Arteries using Low Osmolar Contrast (ICD-10-PCS; 2019-01-22)
PROC: B3131ZZ Fluoroscopy of Right Common Carotid Artery using Low Osmolar Contrast (ICD-10-PCS; 2019-01-22)
PROC: B3171ZZ Fluoroscopy of Left Internal Carotid Artery using Low Osmolar Contrast (ICD-10-PCS; 2019-01-22)
PROC: B31R1ZZ Fluoroscopy of Intracranial Arteries using Low Osmolar Contrast (ICD-10-PCS; 2019-01-22)
PROC: 5A1D70Z Performance of Urinary Filtration, Intermittent, Less than 6 Hours Per Day (ICD-10-PCS; 2019-01-25)
PROC: 0JH63XZ Insertion of Tunneled Vascular Access Device into Chest Subcutaneous Tissue and Fascia, Percutaneous Approach (ICD-10-PCS; 2019-01-27)
PROC: 02HV33Z Insertion of Infusion Device into Superior Vena Cava, Percutaneous Approach (ICD-10-PCS; 2019-01-27)
PROC: B548ZZA Ultrasonography of Superior Vena Cava, Guidance (ICD-10-PCS; 2019-01-27)
PROC: 0DH63UZ Insertion of Feeding Device into Stomach, Percutaneous Approach (ICD-10-PCS; 2019-01-27)
PROC: 0BC18ZZ Extirpation of Matter from Trachea, Via Natural or Artificial Opening Endoscopic (ICD-10-PCS; 2019-01-27)
PROC: 0B113F4 Bypass Trachea to Cutaneous with Tracheostomy Device, Percutaneous Approach (ICD-10-PCS; 2019-01-27)
PROC: 0BH17EZ Insertion of Endotracheal Airway into Trachea, Via Natural or Artificial Opening (ICD-10-PCS; 2019-01-28)
PROC: 5A12012 Performance of Cardiac Output, Single, Manual (ICD-10-PCS; 2019-01-28)
PROC: 30233K1 Transfusion of Nonautologous Frozen Plasma into Peripheral Vein, Percutaneous Approach (ICD-10-PCS; 2019-01-28)
PROC: 30233N1 Transfusion of Nonautologous Red Blood Cells into Peripheral Vein, Percutaneous Approach (ICD-10-PCS; 2019-01-28)
DX: I60.7 Nontraumatic subarachnoid hemorrhage from unspecified intracranial artery (principal); G93.5 Compression of brain; N18.6 End stage renal disease; J96.01 Acute respiratory failure with hypoxia; I13.0 Hypertensive heart and chronic kidney disease with heart failure and stage 1 through stage 4 chronic kidney disease, or unspecified chronic kidney disease; D68.9 Coagulation defect, unspecified; E46 Unspecified protein-calorie malnutrition; J93.9 Pneumothorax, unspecified; I61.9 Nontraumatic intracerebral hemorrhage, unspecified; I50.9 Heart failure, unspecified; D63.1 Anemia in chronic kidney disease; E87.6 Hypokalemia; D50.0 Iron deficiency anemia secondary to blood loss (chronic); R40.2363 Coma scale, best motor response, obeys commands, at hospital admission; R40.2113 Coma scale, eyes open, never, at hospital admission; R40.2213 Coma scale, best verbal response, none, at hospital admission; Z99.2 Dependence on renal dialysis; Z68.24 Body mass index [BMI] 24.0-24.9, adult
CPT/HCPCS: 36223; 36226; 36415; 36416; 36430; 70450; 70496; 70498; 71045; 74177; 76705; 80048; 80185; 82805; 83605; 83690; 84478; 85007; 85025; 85027; 85049; 85300; 85362; 85379; 85384; 85610; 85730; 86850; 86900; 86901; 87340; 90945; 93970; 94002; 94003; 94640; 96365; 96366; 96368; 96375; C1752; C1769; C9113; G0257; G0365; J0171; J0282; J0670; J0690; J1644; J1815; J2001; J2060; J2150; J2250; J2270; J2405; J2543; J2597; J2704; J2765; J2920; J3010; J3370; J3430; J3490; J7050; J7070; J7620; J7626; J7799; P9016; P9048; P9059; Q2009; Q9966; Q9967; S0017; S0020